=== PATIENT | female | born 1930 | race Two or more races ===

== ENCOUNTER 2016-09-10 04:01 | Inpatient (IN) | payer MEDICARE, OTHER ==
[2016-09-10] VITALS (10 sets, daily range): BP systolic 29–167; BP diastolic 44–88
[~2016-09-10] VITALS: Ht 160 cm; Wt 90.7 kg
[~2016-09-10 04:01] MED LIST: ASPIR 8181 MG ORAL; ATORVASTATIN CA20 MG ORAL; BYSTOLIC2.5 MG ORAL; CAPTOPRIL50 MG PO; DIOVAN HCT 1601 EACH ORAL; DIOVAN160 MG ORAL; FUROSEMIDE40 MG/5 ML ORAL; JANUVIA50 MG ORAL; NEXIUM40 MG ORAL; VASCEPA1 GM PO; VITAMIN D400 INTLU ORAL
[2016-09-10] MEDS ORDERED: RANEXA500 MG ORAL (04:07)
[2016-09-10] MEDS ORDERED: DIOVAN HCT 1601 EAC1 ORAL (04:07)
[2016-09-10] MEDS ORDERED: NEXIUM20 MG ORAL (04:07)
--- NOTE | 2016-09-10 04:07 | Emergency Room Report ---
History of Present Illness General Source: Patient Present Illness HPI Patient is an 85-year-old female who is brought in by ambulance after increased shortness of breath. Patient gradual onset of symptoms. Patient had been noted to have increased orthopnea. Patient recently discharged from [facility] after receiving IV fluids for a hernia patient had been taking diuretics previously. The patient denied any vomiting. She had not been having any fever. The patient prior history of COPD. Allergies: Coded Allergies: HYDROMORPHONE (Unverified Allergy, Unknown, 11/16/14) MORPHINE (Unverified Allergy, Unknown, 11/16/14) ONDANSETRON (Unverified Allergy, Unknown, 11/16/14) PHENYTOIN (Unverified Allergy, Unknown, 11/16/14) Patient History Past Medical History: see triage record, COPD Reviewed Nursing Documentation: PMH: Agreed, PSxH: Agreed Review of Systems All Other Systems: negative except mentioned in HPI Physical Exam Sp02 EP Interpretation: reviewed, normal General Appearance: normal inspection, alert, GCS 15, moderate distress, obese Head: atraumatic ENT: normal ENT inspection, hearing grossly normal, normal voice Neck: normal inspection, full range of motion, supple, no bony tend Respiratory: normal inspection, no retraction, respiratory distress, rales Cardiovascular #1: regular rate, rhythm, edema - 3+ Gastrointestinal: soft, no guarding, hernia Genitourinary: no CVA tenderness Musculoskeletal: normal inspection, back normal, normal range of motion Neurologic: normal inspection, alert, oriented x3, responsive, hand i tube bender III-XII nml as tested, speech normal Psychiatric: normal inspection, judgement/insight normal, mood/affect normal Skin: normal inspection, normal color, no rash Medical Decision Making Diagnostic Impression: Primary Impression: CHF exacerbation Additional Impressions: COPD (chronic obstructive pulmonary disease) Hernia ER Course Patient presented for shortness of breath.Differential included but was not limited to anemia, pneumonia, pneumothorax, myocardial infarction, pericardial effusion, congestive heart failure, acidosis. Because of complexity of patient' s case laboratory testing and imaging studies were ordered.The patient was noted to be markedly short of breath. The patient was started on BiPAP. Patient was given breathing treatment.The patient was noted to have improvement or difficulty breathing. Patient was discussed with Dr. Fernandez for inpatient management. Labs Test 09/10/16 04:25 09/10/16 05:20 White Blood Count 11.8 K/UL (4.8-10.8) Red Blood Count 4.39 M/UL (4.20-5.40) Hemoglobin 12.1 G/DL (12.0-16.0) Hematocrit 38.1 % (37.0-47.0) Mean Corpuscular Volume 87 FL (80-99) Mean Corpuscular Hemoglobin 27.6 PG (27.0-31.0) Mean Corpuscular Hemoglobin Concent 31.9 G/DL (32.0-36.0) Red Cell Distribution Width 16.4 % (11.6-14.8) Platelet Count 220 K/UL (150-450) Mean Platelet Volume 7.1 FL (6.5-10.1) Neutrophils (%) (Auto) 82.7 % (45.0-75.0) Lymphocytes (%) (Auto) 8.3 % (20.0-45.0) Monocytes (%) (Auto) 7.5 % (1.0-10.0) Eosinophils (%) (Auto) 0.9 % (0.0-3.0) Basophils (%) (Auto) 0.5 % (0.0-2.0) Sodium Level 139 mEQ/L (135-145) Potassium Level 4.4 mEQ/L (3.4-4.9) Chloride Level 92 mEQ/L (98-107) Carbon Dioxide Level 35 mEQ/L (20-30) Anion Gap 12 (5-15) Blood Urea Nitrogen 13 mg/dL (7-23) Creatinine 0.7 mg/dL (0.5-0.9) Estimat Glomerular Filtration Rate mL/min (>60) Glucose Level 169 mg/dL (74-106) Calcium Level 10.3 mg/dL (8.6-10.2) Total Bilirubin 1.7 mg/dL (0.0-1.2) Direct Bilirubin 0.3 mg/dL (0.1-0.3) Aspartate Amino Transf (AST/SGOT) 20 U/L (5-40) Alanine Aminotransferase (ALT/SGPT) 18 U/L (3-33) Alkaline Phosphatase 76 U/L (35-104) Total Creatine Kinase 47 U/L (26-140) Creatine Kinase MB 2.9 ng/mL (< 3.8) Creatine Kinase MB Relative Index 6.1 Troponin I < 0.30 ng/mL (<=0.30) Pro-B-Type Natriuretic Peptide 1247 pg/mL (0-450) Total Protein 9.1 g/dL (6.6-8.7) Albumin 4.5 g/dL (3.5-5.2) Globulin 4.6 g/dL Albumin/Globulin Ratio 0.9 (1.0-2.7) Urine Color Pale yellow Urine Appearance Clear Urine pH 5 (4.5-8.0) Urine Specific [place] 1.010 (1.005-1.035) Urine Protein Negative (NEGATIVE) Urine Glucose (UA) Negative (NEGATIVE) Urine Ketones Negative (NEGATIVE) Urine Occult Blood Negative (NEGATIVE) Urine Nitrite Negative (NEGATIVE) Urine Bilirubin Negative (NEGATIVE) Urine Urobilinogen Normal MG/DL (0.0-1.0) Urine Leukocyte Esterase Negative (NEGATIVE) EKG Diagnostic Results Rate: normal Rhythm: NSR ST Segments: no acute changes Status: unchanged Disposition: ADMITTED INPATIENT - `` Condition: Serious Se Archuleta Sep 10, 2016 04:07
[2016-09-10] MEDS ORDERED: Ipratropium 0.02% Inh Soln 2.5ml UD HHN ONE (04:15)
[2016-09-10] MEDS ORDERED: Albuterol ud Inhalation HHN ONE (04:15)
[2016-09-10] MEDS ORDERED: KLONOPIN0.5 MG ORAL (04:19)
[2016-09-10] MEDS ORDERED: POTASSIUM CHLOR8 ME3 PO (04:19)
[2016-09-10] MEDS ORDERED: CAPTOPRIL25 M1 PO (04:19)
[2016-09-10] MEDS ORDERED: VESICARE5 MG ORAL (04:19)
[2016-09-10] MEDS ORDERED: BENADRYL25 MG ORAL (04:21)
[2016-09-10 04:55] LABS: BASOPHILS % (AUTO) 0.5 % (0.0-2.0); EOSINOPHILS % (AUTO) 0.9 % (0.0-3.0); LYMPHOCYTES % (AUTO) 8.3 % (20.0-45.0); MEAN CORPUSCULAR HEMOGLOBIN 27.6 PG (27.0-31.0); MEAN CORPUSCULAR HGB CONC 31.9 G/DL (32.0-36.0); MEAN CORPUSCULAR VOLUME 87 FL (80-99); MEAN PLATELET VOLUME 7.1 FL (6.5-10.1); MONOCYTES % (AUTO) 7.5 % (1.0-10.0); NEUTROPHILS % (AUTO) 82.7 % (45.0-75.0); PLATELET COUNT 220 K/UL (150-450); RED BLOOD COUNT 4.39 M/UL (4.20-5.40); RED CELL DISTRIBUTION WIDTH 16.4 % (11.6-14.8); WHITE BLOOD COUNT 11.8 K/UL (4.8-10.8)
[2016-09-10 05:16] LABS: ALANINE AMINOTRANSFERASE 18 U/L (3-33); ALBUMIN/GLOBULIN RATIO 0.9 (1.0-2.7); ANION GAP 12 (5-15); ASPARTATE AMINO TRANSFERASE 20 U/L (5-40); CALCIUM 10.3 mg/dL (8.6-10.2); CARBON DIOXIDE 35 mEQ/L (20-30); CHLORIDE 92 mEQ/L (98-107); CREATININE 0.7 mg/dL (0.5-0.9); HEMOLYSIS 0; POTASSIUM 4.4 mEQ/L (3.4-4.9); SODIUM 139 mEQ/L (135-145); TOTAL PROTEIN 9.1 g/dL (6.6-8.7)
[2016-09-10 05:17] LABS: TROPONIN I < 0.30 ng/mL (<=0.30)
[2016-09-10 05:27] LABS: CKMB 2.9 ng/mL (< 3.8)
[2016-09-10 05:31] LABS: APPEARANCE,URINE CLEAR; KETONES,URINE NEGATIVE (NEGATIVE); LEUKOCYTE ESTERASE ,URINE NEGATIVE (NEGATIVE); NITRITE,URINE NEGATIVE (NEGATIVE); PH,URINE 5 (4.5-8.0); PROTEIN,URINE NEGATIVE (NEGATIVE); UROBILINOGEN,URINE NORMAL MG/DL (0.0-1.0)
[2016-09-10 05:43] LABS: BILIRUBIN,DIRECT 0.3 mg/dL (0.1-0.3)
[2016-09-10] MEDS ORDERED: NovoLOG Insulin Flexpen SUBQ SCH (07:30)
--- NOTE | 2016-09-10 08:55 | Consultation ---
Consult Note Consult Note ID CONSULT: Kailee# [id number] Assessment/Plan ASSESSMENT: 85 y/o female with: // Acute on chronic diastolic CHF exacerbation - trop(-) x1, BNP elevated - TTE 10/2014: EF 55-60%, grade I diastolic dysfunction, mild // Leukocytosis - mild, afebrile, m/l stress response - UA benign, no localizing s/sx infection // Acute respiratory failure / BiPAP 2/2 CHF, effusion // Pleural effusion // DM2 // Large ventral hernia // Morbid obesity // No ABX allergies // Full Code PLAN: - low suspicion infectious process - monitor pt off of ABX - consider thoracentesis - monitor CBC, temperatures, gandhi-culture if acute change - monitor BMP - diuresis - BiPAP prn d/w family at bedside Thanks! Will follow KALEIGH SAUCEDA Sep 10, 2016 08:55
[2016-09-10] MEDS ORDERED: Solifenacin 10mg tab ORAL ONE (09:00)
[2016-09-10] MEDS ORDERED: Bystolic 2.5mg Tab ORAL ONE (09:00)
[2016-09-10] MEDS ORDERED: Ranolazine 500mg tab ORAL ONE (09:00)
[2016-09-10] MEDS ORDERED: Furosemide 40mg tab ORAL ONE (09:00)
[2016-09-10] MEDS ORDERED: Captopril 25mg tab ORAL ONE (09:00)
--- NOTE | 2016-09-10 09:51 | History & Physical ---
History and Physical History & Physicial Dictation completed. [id number] Reggie Fernandez MD Sep 10, 2016 09:51
[2016-09-10 11:16] LABS: HEMOGLOBIN A1C 5.9 % (< 6.0)
[2016-09-10 11:25] LABS: THYROID STIMULATING HORMONE 1.59 uIU/mL (0.300-4.500)
[2016-09-10] MEDS: Heparin 5000 units/ml inj SUBQ SCH ×3 (11:37→21:43)
[2016-09-10] MEDS: Aspirin EC 81mg tab ORAL SCH (11:37)
--- NOTE | 2016-09-10 11:38 | History and Physical Report ---
DATE OF ADMISSION: 09/10/2016 SOURCE OF INFORMATION: The patient and EMR. HISTORY OF PRESENT ILLNESS: The patient is an 85-year-old female with prior history of COPD and CHF, who presented with worsening development shortness of breath. The patient has been recently discharged from [facility] where she had received the IV fluids. PAST MEDICAL HISTORY: Diabetes mellitus, COPD, incarceration, partial small bowel obstruction, anemia, and CHF. MEDICATIONS: Home medications including aspirin, Lipitor, captopril, clonazepam, Lasix, heparin, Bystolic, potassium, Januvia, and VESIcare. ALLERGIES: Dilaudid, morphine, Zofran, and phenytoin. REVIEW OF SYSTEMS: Today, review of systems as follows: Negative for chest pain. Negative for abnormal bleeding. Negative for diarrhea and constipation. Negative for fever or chills. PHYSICAL EXAMINATION: VITAL SIGNS: Blood pressure 160/80, temperature 97.5 degrees, and pulse oximetry 99% on two liters of oxygen. HEENT: Head and neck, atraumatic and normocephalic. CHEST: Diffuse bronchial breathing sounds. Decreased breathing sounds. HEART: S1 and S2. Regular rate and rhythm. ABDOMEN: Soft. No organomegaly.multiple abdominal wall hernias in multiple sizes, not tender MUSCULOSKELETAL: Decreased muscle mass, however, there is no gross focal motor deficit. NEUROLOGY: The patient is awake, alert and oriented x2. LABORATORY AND DIAGNOSTIC DATA: Labs dated 09/10/2016 show WBC 11.8, hemoglobin 12.1, and platelets 220,000. Sodium 139, potassium 4.4, BUN 13, and creatinine 0.7. ALT and AST normal. BNP 1240. Urine analysis unremarkable. IMAGING: Official report for the chest x-ray is pending. COURSE IN THE ER: The patient was initially admitted with the abnormal blood pressure. Initial chest x-ray showed diffusion. The patient's symptoms was managed by the BiPAP. ASSESSMENT AND PLAN: 1. Acute hypoxemic respiratory failure. 2. Congestive heart failure exacerbation - workup - echocardiogram results pending. 3. Diabetes type 2, status unknown. 4. Chronic obstructive pulmonary disease. 5. Hyperlipidemia. 6. Cachexia. 7. Abdominal wall hernia-Multiple 7. Gastrointestinal and deep vein thrombosis prophylaxes. PLAN OF CARE: We will resume the home medication. Cardiology, Dr. Taylor, Pulmonary, Dr. Mauricio, Infectious Disease, Dr. Tej Culp and Surgery Dr Thapa have been consulted. Continue with the current management. Reggie Fernandez M.D. DR: Muriel JOB#: [id number] CC: [email or web address]
--- NOTE | 2016-09-10 11:41 | Diagnostic Imaging Report ---
Indication: Dyspnea Comparison: 07/15/2007 A single view chest radiograph was obtained. Findings: Interstitial edema noted. The heart is enlarged. Bones are osteopenic. Impression: Congestive heart failure
--- NOTE | 2016-09-10 11:48 | Consultation ---
DATE OF CONSULTATION: INFECTIOUS DISEASE CONSULTATION: REFERRING PHYSICIAN: Reggie Fernandez M.D. REASON FOR CONSULTATION: Leukocytosis. HISTORY OF PRESENT ILLNESS: This 85-year-old diabetic obese female with history of diastolic CHF admitted on 09/10/2016 with shortness of breath. The patient denies cough, fevers, or chills. She was recently admitted to [facility] and was off of her diuretic. Chest x-ray shows pleural effusion and pulmonary edema. No fevers and associated mild leukocytosis of 11.8. Urinalysis is benign. Troponin negative x1. BNP is elevated at 1247. No cultures have been sent. She has not received any antibiotics . ID now consulted to assist in management. PAST MEDICAL HISTORY: 1. Morbid obesity. 2. Diabetes. 3. Hypertension. 4. Hyperlipidemia. 5. Diastolic CHF. 6. Large ventral hernia. PAST SURGICAL HISTORY: Hysterectomy. MEDICATIONS: 1. Januvia. 2. Lipitor. 3. Aspirin. 4. Captopril. 5. Lasix. 6. 7. Ranexa. 8. VESIcare. 9. Subcutaneous heparin. 10. Protonix. ALLERGIES: 1. Hydromorphone. 2. Morphine. 3. Zofran. 4. Dilantin. SOCIAL HISTORY: The patient lives locally. Her family involved in her care. No active tobacco, alcohol, or illicit drug abuse. FAMILY HISTORY: Mother had diabetes and cancer. REVIEW OF SYSTEMS: As per history of present illness. Ten systems reviewed. All pertinent positives and negatives noted. PHYSICAL EXAMINATION: VITAL SIGNS: Maximum temperature 97.5 degrees, blood pressure 120/63, heart rate in 70s, respiratory rate 20, and saturating 100% on 40% FiO2 BiPAP. GENERAL: Mild respiratory distress. CARDIOVASCULAR: Regular rate and rhythm. No murmurs. PULMONARY: Coarse breath sounds bilaterally. ABDOMEN: Bowel sounds present. Soft, nondistended, and nontender. Large ventral hernia. EXTREMITIES: Edema. LABORATORY DATA: White blood cell count 11.8, hemoglobin 12.1, and platelets 220,000. Sodium 139, potassium 4.4, chloride 92, bicarb 35, BUN 13, and creatinine 0.7. Liver function tests within normal limits. Troponin negative x1. BNP 1247. Urinalysis negative. MICROBIOLOGY: None. IMAGING: On 09/10/2016, chest x-ray pending. Reported pleural effusion and edema. ASSESSMENT: 1. Acute on chronic diastolic congestive heart failure exacerbation. Troponin negative x1 and BNP is elevated. Echocardiogram in 2014 showed ejection fraction of 55% to 60% with diastolic dysfunction, mild aortic stenosis. 2. Leukocytosis, mild and afebrile most likely stress response. Urinalysis is benign. No localizing signs or symptoms of infection. 3. Acute respiratory failure/BiPAP most likely secondary to congestive heart failure and pleural effusion. 4. Pleural effusion. 5. Diabetes type 2. 6. Morbid obesity. 7. Large ventral hernia in the past. 8. No antibiotic allergies. 9. Full Code. PLAN: 1. Low suspicion for infectious process. Monitor the patient off of antibiotics. 2. Consider thoracentesis. 3. Monitor CBC, temperatures, and panculture if acute change. 4. Monitor BMP. 5. Diuresis. 6. BiPAP as needed. 7. Discussed with family at bedside. Thank you. We will follow. Tej Culp M.D. DR: Nichol JOB#: [id number] CC: Reggie Fernandez M.D.; Fax#: [phone] Chang M.D; Fax#: [phone]
[2016-09-10] MEDS: Bystolic 2.5mg Tab ORAL SCH (12:30)
[2016-09-10] MEDS: Captopril 25mg tab ORAL SCH (12:31)
[2016-09-10] MEDS: Furosemide 40mg tab ORAL SCH (13:45)
--- NOTE | 2016-09-10 20:45 | Cardiology Progress Note ---
Assessment/Plan Assessment/Plan The patient is seen and examined, full consult note will be dictated. Objective Last 24 Hour Vital Signs Date Time Temp Pulse Resp B/P Pulse Ox O2 Delivery O2 Flow Rate FiO2 09/10/16 20:36 97.5 79 17 138/65 94 Nasal Cannula 4.0 09/10/16 20:00 4.0 09/10/16 20:00 72 09/10/16 17:18 68 29 117/57 97 Nasal Cannula 2.0 09/10/16 17:17 Nasal Cannula 2.0 28 09/10/16 17:17 97 Nasal Cannula 2.0 28 09/10/16 17:17 97.5 68 29 119/54 98 Nasal Cannula 4.0 40 09/10/16 15:58 68 29 119/54 98 Nasal Cannula 4.0 09/10/16 14:06 70 29 98/48 98 Nasal Cannula 4.0 09/10/16 13:26 63 29 95/48 97 Venturi Mask 40 71 09/10/16 12:46 65 29 97/44 98 40 71 09/10/16 12:31 123/53 09/10/16 11:00 71 29 123/73 98 40 09/10/16 10:43 75 29 98 Facial 40 09/10/16 08:53 75 29 100 Facial 40 09/10/16 08:00 71 20 29/58 100 Bi-pap 40 09/10/16 07:28 74 28 100 Facial 40 09/10/16 06:08 97.5 75 28 128/63 98 Bi-pap 40 09/10/16 05:10 75 20 99 Facial 40 09/10/16 05:05 40 09/10/16 05:05 97.5 81 28 167/88 100 Bi-pap 40 09/10/16 05:00 81 28 Bi-pap 40 09/10/16 04:27 82 23 100 Bi-pap 40 09/10/16 04:25 82 23 100 Facial 40 09/10/16 03:59 97.5 91 42 167/88 96 Bi-pap Intake and Output 09/09/16 09/10/16 19:00 07:00 Output Total 150 ml Balance -150 ml Output Urine Total 150 ml Laboratory Tests Test 09/10/16 04:25 09/10/16 05:20 White Blood Count 11.8 K/UL (4.8-10.8) H Red Blood Count 4.39 M/UL (4.20-5.40) Hemoglobin 12.1 G/DL (12.0-16.0) Hematocrit 38.1 % (37.0-47.0) Mean Corpuscular Volume 87 FL (80-99) Mean Corpuscular Hemoglobin 27.6 PG (27.0-31.0) Mean Corpuscular Hemoglobin Concent 31.9 G/DL (32.0-36.0) L Red Cell Distribution Width 16.4 % (11.6-14.8) H Platelet Count 220 K/UL (150-450) Mean Platelet Volume 7.1 FL (6.5-10.1) Neutrophils (%) (Auto) 82.7 % (45.0-75.0) H Lymphocytes (%) (Auto) 8.3 % (20.0-45.0) L Monocytes (%) (Auto) 7.5 % (1.0-10.0) Eosinophils (%) (Auto) 0.9 % (0.0-3.0) Basophils (%) (Auto) 0.5 % (0.0-2.0) Sodium Level 139 mEQ/L (135-145) Potassium Level 4.4 mEQ/L (3.4-4.9) Chloride Level 92 mEQ/L (98-107) L Carbon Dioxide Level 35 mEQ/L (20-30) H Anion Gap 12 (5-15) Blood Urea Nitrogen 13 mg/dL (7-23) Creatinine 0.7 mg/dL (0.5-0.9) Estimat Glomerular Filtration Rate mL/min (>60) Glucose Level 169 mg/dL (74-106) H Hemoglobin A1c 5.9 % (< 6.0) Calcium Level 10.3 mg/dL (8.6-10.2) H Total Bilirubin 1.7 mg/dL (0.0-1.2) H Direct Bilirubin 0.3 mg/dL (0.1-0.3) Aspartate Amino Transf (AST/SGOT) 20 U/L (5-40) Alanine Aminotransferase (ALT/SGPT) 18 U/L (3-33) Alkaline Phosphatase 76 U/L (35-104) Total Creatine Kinase 47 U/L (26-140) Creatine Kinase MB 2.9 ng/mL (< 3.8) Creatine Kinase MB Relative Index 6.1 Troponin I < 0.30 ng/mL (<=0.30) Pro-B-Type Natriuretic Peptide 1247 pg/mL (0-450) H Total Protein 9.1 g/dL (6.6-8.7) H Albumin 4.5 g/dL (3.5-5.2) Globulin 4.6 g/dL Albumin/Globulin Ratio 0.9 (1.0-2.7) L Thyroid Stimulating Hormone (TSH) 1.590 uIU/mL (0.300-4.500) Urine Color Pale yellow Urine Appearance Clear Urine pH 5 (4.5-8.0) Urine Specific [place] 1.010 (1.005-1.035) Urine Protein Negative (NEGATIVE) Urine Glucose (UA) Negative (NEGATIVE) Urine Ketones Negative (NEGATIVE) Urine Occult Blood Negative (NEGATIVE) Urine Nitrite Negative (NEGATIVE) Urine Bilirubin Negative (NEGATIVE) Urine Urobilinogen Normal MG/DL (0.0-1.0) Urine Leukocyte Esterase Negative (NEGATIVE) DEMARCUS BOYER Sep 10, 2016 20:45
[2016-09-10] MEDS ORDERED: clonazePAM 0.5mg tab ORAL PRN (21:00)
--- NOTE | 2016-09-10 21:37 | General Surgery Progress Note ---
General Surgery-Progress Note Subjective Additional Comments ventral hernia Objective Last 24 Hour Vital Signs Date Time Temp Pulse Resp B/P Pulse Ox O2 Delivery O2 Flow Rate FiO2 09/10/16 20:36 97.5 79 17 138/65 94 Nasal Cannula 4.0 09/10/16 20:00 4.0 09/10/16 20:00 72 09/10/16 17:18 68 29 117/57 97 Nasal Cannula 2.0 09/10/16 17:17 Nasal Cannula 2.0 28 09/10/16 17:17 97 Nasal Cannula 2.0 28 09/10/16 17:17 97.5 68 29 119/54 98 Nasal Cannula 4.0 40 09/10/16 15:58 68 29 119/54 98 Nasal Cannula 4.0 09/10/16 14:06 70 29 98/48 98 Nasal Cannula 4.0 09/10/16 13:26 63 29 95/48 97 Venturi Mask 40 71 09/10/16 12:46 65 29 97/44 98 40 71 09/10/16 12:31 123/53 09/10/16 11:00 71 29 123/73 98 40 09/10/16 10:43 75 29 98 Facial 40 09/10/16 08:53 75 29 100 Facial 40 09/10/16 08:00 71 20 29/58 100 Bi-pap 40 09/10/16 07:28 74 28 100 Facial 40 09/10/16 06:08 97.5 75 28 128/63 98 Bi-pap 40 09/10/16 05:10 75 20 99 Facial 40 09/10/16 05:05 40 09/10/16 05:05 97.5 81 28 167/88 100 Bi-pap 40 09/10/16 05:00 81 28 Bi-pap 40 09/10/16 04:27 82 23 100 Bi-pap 40 09/10/16 04:25 82 23 100 Facial 40 09/10/16 03:59 97.5 91 42 167/88 96 Bi-pap I&O Intake and Output 09/09/16 09/10/16 19:00 07:00 Output Total 150 ml Balance -150 ml Output Urine Total 150 ml Respiratory: decreased breath sounds Abdomen: soft, non-tender, present bowel sounds, other - large reducible ventral hernia LLQ Extremities: edema Laboratory Tests Test 09/10/16 04:25 09/10/16 05:20 White Blood Count 11.8 K/UL (4.8-10.8) H Red Blood Count 4.39 M/UL (4.20-5.40) Hemoglobin 12.1 G/DL (12.0-16.0) Hematocrit 38.1 % (37.0-47.0) Mean Corpuscular Volume 87 FL (80-99) Mean Corpuscular Hemoglobin 27.6 PG (27.0-31.0) Mean Corpuscular Hemoglobin Concent 31.9 G/DL (32.0-36.0) L Red Cell Distribution Width 16.4 % (11.6-14.8) H Platelet Count 220 K/UL (150-450) Mean Platelet Volume 7.1 FL (6.5-10.1) Neutrophils (%) (Auto) 82.7 % (45.0-75.0) H Lymphocytes (%) (Auto) 8.3 % (20.0-45.0) L Monocytes (%) (Auto) 7.5 % (1.0-10.0) Eosinophils (%) (Auto) 0.9 % (0.0-3.0) Basophils (%) (Auto) 0.5 % (0.0-2.0) Sodium Level 139 mEQ/L (135-145) Potassium Level 4.4 mEQ/L (3.4-4.9) Chloride Level 92 mEQ/L (98-107) L Carbon Dioxide Level 35 mEQ/L (20-30) H Anion Gap 12 (5-15) Blood Urea Nitrogen 13 mg/dL (7-23) Creatinine 0.7 mg/dL (0.5-0.9) Estimat Glomerular Filtration Rate mL/min (>60) Glucose Level 169 mg/dL (74-106) H Hemoglobin A1c 5.9 % (< 6.0) Calcium Level 10.3 mg/dL (8.6-10.2) H Total Bilirubin 1.7 mg/dL (0.0-1.2) H Direct Bilirubin 0.3 mg/dL (0.1-0.3) Aspartate Amino Transf (AST/SGOT) 20 U/L (5-40) Alanine Aminotransferase (ALT/SGPT) 18 U/L (3-33) Alkaline Phosphatase 76 U/L (35-104) Total Creatine Kinase 47 U/L (26-140) Creatine Kinase MB 2.9 ng/mL (< 3.8) Creatine Kinase MB Relative Index 6.1 Troponin I < 0.30 ng/mL (<=0.30) Pro-B-Type Natriuretic Peptide 1247 pg/mL (0-450) H Total Protein 9.1 g/dL (6.6-8.7) H Albumin 4.5 g/dL (3.5-5.2) Globulin 4.6 g/dL Albumin/Globulin Ratio 0.9 (1.0-2.7) L Thyroid Stimulating Hormone (TSH) 1.590 uIU/mL (0.300-4.500) Urine Color Pale yellow Urine Appearance Clear Urine pH 5 (4.5-8.0) Urine Specific [place] 1.010 (1.005-1.035) Urine Protein Negative (NEGATIVE) Urine Glucose (UA) Negative (NEGATIVE) Urine Ketones Negative (NEGATIVE) Urine Occult Blood Negative (NEGATIVE) Urine Nitrite Negative (NEGATIVE) Urine Bilirubin Negative (NEGATIVE) Urine Urobilinogen Normal MG/DL (0.0-1.0) Urine Leukocyte Esterase Negative (NEGATIVE) Assessment Additional Comments Ventral Hernia Plan Additional Comments At present time her condition does not allow any surgery KAYA PANCHAL Sep 10, 2016 21:37
[2016-09-10] MEDS: Atorvastatin 20mg tab ORAL SCH (21:39)
[2016-09-10] MEDS: Ranolazine 500mg tab ORAL SCH (21:39)
[2016-09-10] MEDS: NovoLOG Insulin Flexpen SUBQ SCH (21:42)
--- NOTE | 2016-09-10 22:48 | Pre-op HX & Phy Repo 2 SIG ---
DATE OF ADMISSION: 09/10/2016 REQUESTING PHYSICIAN: Reggie Fernandez M.D. REASON FOR CONSULTATION: Ventral hernia. HISTORY OF PRESENT ILLNESS: This is an 85-year-old, [place] female, who presented to emergency room for shortness of breath. She has a long history of CHF and COPD, but apparently recently she has received some intravenous fluids for nausea and vomiting, which has caused pulmonary edema and increase in her dyspnea, so she presented to the emergency room. During the evaluation, it was noticed that the patient had a hernia and a consultation has been requested. The patient cannot talk. Her daughter, who is at bedside and she was the one who gave the information. She stated that the patient has undergone a hysterectomy about 15 years ago and a few years later she has developed a lump at the left lower quadrant of her abdomen, which has gradually enlarged and increased. She stated that okay generally it does causes nausea and vomiting, but it is not very frequent. At this time, apparently she does not have any complaint about the hernia. PAST MEDICAL HISTORY: The daughter stated that she is allergic to morphine, Dilaudid and Zoloft. She has a history of COPD, diabetes, congestive heart failure and this apparently she has a history of cancer of the bladder, which the daughter claims that the urologist "tries it every now and then". PAST SURGICAL HISTORY: Include hysterectomy and left breast biopsy. MEDICATIONS: She is on multiple medications. Please see the medicine reconciliation form. SOCIAL HISTORY: The patient is an 85-year-old female, who is and mother of two children. She denies smoking and drinking. REVIEW OF SYSTEMS: Unobtainable as the patient is obtunded. PHYSICAL EXAMINATION: GENERAL APPEARANCE: The patient appeared to be a well-developed, well-nourished, morbidly obese, 85-year-old female, lying in bed, obtunded. HEENT: Head is normocephalic and atraumatic. Eyes, pupils are equal, round, and reactive to light. Mouth is clear. NECK: There is no palpable thyromegaly or adenopathy. CHEST: Clear. She has rhonchi on both sides. HEART: Tachycardic, but there is no gallop or murmur. ABDOMEN: Very obese and pendulous, but soft and nontender. She has a scar of the transverse suprapubic incision. She has a partially reducible hernia at the left lower quadrant of the abdomen. This hernia is at the size of a coconut. EXTREMITIES: She has a slight edema of both legs. ASSESSMENT: Ventral hernia. RECOMMENDATION: The patient requires a ventral herniorrhaphy, but at the present time with her condition that any surgery is contraindicated and she will not be able to tolerate the general anesthesia and after this acute episode resolves, if the roof truss detailer clears her for surgery I will be more than happy to perform the operation. Monse Thapa M.D. DR: SHONDA JOB#: [id number] CC:
[2016-09-11] VITALS: BP 105/51
[2016-09-11] MEDS: DuoNeb 0.5-3(2.5)mg/3ml neb HHN PRN ×2 (01:05→06:22)
[2016-09-11 04:00] VITALS: BP 134/70
[2016-09-11 05:46] LABS: BASOPHILS % (AUTO) 0.3 % (0.0-2.0); EOSINOPHILS % (AUTO) 1.6 % (0.0-3.0); LYMPHOCYTES % (AUTO) 10.1 % (20.0-45.0); MEAN CORPUSCULAR HEMOGLOBIN 27.9 PG (27.0-31.0); MEAN CORPUSCULAR HGB CONC 32.2 G/DL (32.0-36.0); MEAN CORPUSCULAR VOLUME 87 FL (80-99); MEAN PLATELET VOLUME 6.9 FL (6.5-10.1); MONOCYTES % (AUTO) 9.7 % (1.0-10.0); NEUTROPHILS % (AUTO) 78.2 % (45.0-75.0); PLATELET COUNT 190 K/UL (150-450); RED BLOOD COUNT 3.36 M/UL (4.20-5.40); RED CELL DISTRIBUTION WIDTH 16.2 % (11.6-14.8)
[2016-09-11 06:12] LABS: ALANINE AMINOTRANSFERASE 12 U/L (3-33); ALBUMIN/GLOBULIN RATIO 0.8 (1.0-2.7); ANION GAP 11 (5-15); ASPARTATE AMINO TRANSFERASE 14 U/L (5-40); CALCIUM 9.1 mg/dL (8.6-10.2); CARBON DIOXIDE 35 mEQ/L (20-30); CHLORIDE 97 mEQ/L (98-107); CREATININE 0.8 mg/dL (0.5-0.9); HEMOLYSIS 0; SODIUM 143 mEQ/L (135-145); TOTAL PROTEIN 6.9 g/dL (6.6-8.7)
[2016-09-11] MEDS: sitaGLIPtin 50mg tab ORAL SCH (06:24)
[2016-09-11] MEDS: NovoLOG Insulin Flexpen SUBQ SCH ×4 (06:25→20:01)
[2016-09-11 06:55] LABS: BILIRUBIN,DIRECT 0.2 mg/dL (0.1-0.3)
[2016-09-11 08:00] VITALS: BP 119/64
--- NOTE | 2016-09-11 08:37 | Infectious Diseases Prog Note ---
Assessment/Plan Assessment/Plan ASSESSMENT: 85 y/o female with: // Acute on chronic diastolic CHF exacerbation - trop(-) x1, BNP elevated - CXR 09/10: Interstitial edema noted. The heart is enlarged - TTE 10/2014: EF 55-60%, grade I diastolic dysfunction, mild // Leukocytosis, mild - resolved, afebrile, m/l stress response - UA benign, no localizing s/sx infection // Acute respiratory failure / BiPAP 2/2 CHF, effusion // DM2 // Large ventral hernia // Morbid obesity // No ABX allergies // Full Code PLAN: - low suspicion infectious process - monitor pt off of ABX - monitor CBC, temperatures, gandhi-culture if acute change - monitor BMP - diuresis - BiPAP prn Subjective Allergies: Coded Allergies: HYDROMORPHONE (Unverified Allergy, Unknown, 11/16/14) MORPHINE (Unverified Allergy, Unknown, 11/16/14) ONDANSETRON (Unverified Allergy, Unknown, 11/16/14) PHENYTOIN (Unverified Allergy, Unknown, 11/16/14) Subjective remains afebrile. now on NC leukocytosis resolved Objective Vital Signs Last 24 Hour Vital Signs Date Time Temp Pulse Resp B/P Pulse Ox O2 Delivery O2 Flow Rate FiO2 09/11/16 08:00 98.4 81 18 119/64 91 Nasal Cannula 3.0 09/11/16 06:41 Nasal Cannula 3.0 09/11/16 06:40 97 Nasal Cannula 3.0 09/11/16 06:33 71 22 97 Nasal Cannula 3.0 09/11/16 06:20 72 20 91 Nasal Cannula 4.0 09/11/16 04:00 75 09/11/16 04:00 98.2 72 24 134/70 100 Nasal Cannula 4.0 09/11/16 04:00 4.0 09/11/16 01:17 72 20 98 Nasal Cannula 4.0 36 09/11/16 01:06 75 20 92 Nasal Cannula 4.0 36 09/11/16 01:06 75 20 Nasal Cannula 4.0 36 09/11/16 00:00 98.6 75 21 105/51 94 Nasal Cannula 4.0 09/11/16 00:00 4.0 09/10/16 20:36 97.5 79 17 138/65 94 Nasal Cannula 4.0 09/10/16 20:00 4.0 09/10/16 20:00 72 09/10/16 17:18 68 29 117/57 97 Nasal Cannula 2.0 09/10/16 17:17 Nasal Cannula 2.0 28 09/10/16 17:17 97 Nasal Cannula 2.0 28 09/10/16 17:17 97.5 68 29 119/54 98 Nasal Cannula 4.0 40 09/10/16 15:58 68 29 119/54 98 Nasal Cannula 4.0 09/10/16 14:06 70 29 98/48 98 Nasal Cannula 4.0 09/10/16 13:26 63 29 95/48 97 Venturi Mask 40 71 09/10/16 12:46 65 29 97/44 98 40 71 09/10/16 12:31 123/53 09/10/16 11:00 71 29 123/73 98 40 09/10/16 10:43 75 29 98 Facial 40 09/10/16 08:53 75 29 100 Facial 40 Height (Feet): 5 Height (Inches): 3.00 Weight (Pounds): 200 General Appearance: no acute distress Respiratory/Chest: no respiratory distress Cardiovascular: normal rate, regular rhythm Abdomen: normal bowel sounds, soft, non tender, non distended, hernia Laboratory Tests Test 09/11/16 03:35 White Blood Count 9.0 K/UL (4.8-10.8) Red Blood Count 3.36 M/UL (4.20-5.40) L Hemoglobin 9.4 G/DL (12.0-16.0) L Hematocrit 29.2 % (37.0-47.0) L Mean Corpuscular Volume 87 FL (80-99) Mean Corpuscular Hemoglobin 27.9 PG (27.0-31.0) Mean Corpuscular Hemoglobin Concent 32.2 G/DL (32.0-36.0) Red Cell Distribution Width 16.2 % (11.6-14.8) H Platelet Count 190 K/UL (150-450) Mean Platelet Volume 6.9 FL (6.5-10.1) Neutrophils (%) (Auto) 78.2 % (45.0-75.0) H Lymphocytes (%) (Auto) 10.1 % (20.0-45.0) L Monocytes (%) (Auto) 9.7 % (1.0-10.0) Eosinophils (%) (Auto) 1.6 % (0.0-3.0) Basophils (%) (Auto) 0.3 % (0.0-2.0) Sodium Level 143 mEQ/L (135-145) Potassium Level 4.0 mEQ/L (3.4-4.9) Chloride Level 97 mEQ/L (98-107) L Carbon Dioxide Level 35 mEQ/L (20-30) H Anion Gap 11 (5-15) Blood Urea Nitrogen 16 mg/dL (7-23) Creatinine 0.8 mg/dL (0.5-0.9) Estimat Glomerular Filtration Rate mL/min (>60) Glucose Level 114 mg/dL (74-106) H Calcium Level 9.1 mg/dL (8.6-10.2) Total Bilirubin 1.4 mg/dL (0.0-1.2) H Direct Bilirubin 0.2 mg/dL (0.1-0.3) Aspartate Amino Transf (AST/SGOT) 14 U/L (5-40) Alanine Aminotransferase (ALT/SGPT) 12 U/L (3-33) Alkaline Phosphatase 80 U/L (35-104) Pro-B-Type Natriuretic Peptide 965 pg/mL (0-450) H Total Protein 6.9 g/dL (6.6-8.7) Albumin 3.1 g/dL (3.5-5.2) L Globulin 3.8 g/dL Albumin/Globulin Ratio 0.8 (1.0-2.7) L Current Medications Medications (Trade) Dose Ordered Sig/Volodymyr Route PRN Reason Start Time Stop Time Status Last Admin Dose Admin Albuterol/ Ipratropium (DuoNeb 0.5-3(2.5)mg/3ml) 3 ml EVERY 4 HOURS PRN HHN Shortness of Breath 09/10/16 19:00 09/15/16 18:59 09/11/16 06:22 Aspirin (Ecotrin) 81 mg DAILY ORAL 09/10/16 09:00 10/10/16 08:59 09/10/16 11:37 Atorvastatin Calcium (Lipitor) 20 mg BEDTIME ORAL 09/10/16 21:00 10/10/16 20:59 09/10/16 21:39 Captopril (Capoten) 25 mg DAILY ORAL 09/10/16 13:00 10/10/16 12:59 09/10/16 12:31 Clonazepam (KlonoPIN) 0.5 mg BEDTIME PRN ORAL Restlessness 09/10/16 21:00 09/17/16 20:59 09/10/16 21:39 Dextrose (Dextrose 50%) STAT PRN IV Hypoglycemia 09/10/16 07:30 10/10/16 07:29 Furosemide (Lasix) 40 mg DAILY ORAL 09/10/16 13:30 10/10/16 13:29 09/10/16 13:45 Heparin Sodium (Porcine) (Heparin 5000 units/ml) 5,000 units BID SUBQ 09/10/16 09:00 10/10/16 08:59 09/10/16 21:43 Insulin Aspart (NovoLOG) BEFORE MEALS AND HS SUBQ 09/10/16 21:30 10/10/16 21:29 09/10/16 21:42 Nebivolol (Bystolic) 5 mg DAILY ORAL 09/10/16 13:00 10/10/16 12:59 09/10/16 12:30 Pantoprazole (Protonix) 40 mg DAILY ORAL 09/10/16 12:30 10/10/16 12:29 09/10/16 11:37 Potassium Chloride (K-Dur) 10 meq TID ORAL 09/10/16 13:00 10/10/16 12:59 09/10/16 21:38 Ranolazine (Ranexa ER 500mg) 500 mg Q12HR ORAL 09/10/16 21:00 10/10/16 20:59 09/10/16 21:39 Sitagliptin Phosphate (Januvia) 50 mg ACBREAKFAST ORAL 09/11/16 06:30 10/11/16 06:29 09/11/16 06:24 Solifenacin (Vesicare) 5 mg DAILY ORAL 09/11/16 09:00 10/11/16 08:59 KALEIGH SAUCEDA 24, 2017 08:37
[2016-09-11] MEDS: Solifenacin 10mg tab ORAL SCH (09:00)
[2016-09-11] MEDS: Captopril 25mg tab ORAL SCH (09:00)
[2016-09-11] MEDS: Bystolic 2.5mg Tab ORAL SCH (09:26)
[2016-09-11] MEDS: Ranolazine 500mg tab ORAL SCH ×2 (09:26→20:01)
[2016-09-11] MEDS: Furosemide 40mg tab ORAL SCH (09:27)
[2016-09-11] MEDS: Aspirin EC 81mg tab ORAL SCH (09:27)
--- NOTE | 2016-09-11 09:48 | General Progress Note ---
Assessment/Plan Status: stable Assessment/Plan 1. Acute hypoxemic respiratory failure. 2. Congestive heart failure exacerbation - workup - echocardiogram results pending. 3. Diabetes type 2, status unknown. 4. Chronic obstructive pulmonary disease. 5. Hyperlipidemia. 6. Cachexia. 7. Abdominal wall hernia-Multiple 7. Gastrointestinal and deep vein thrombosis prophylaxes. Plan: current managment Subjective ROS Limited/Unobtainable: No Constitutional: Reports: malaise HEENT: Reports: no symptoms Respiratory: Reports: cough, orthopnea, shortness of breath Allergies: Coded Allergies: HYDROMORPHONE (Unverified Allergy, Unknown, 11/16/14) MORPHINE (Unverified Allergy, Unknown, 11/16/14) ONDANSETRON (Unverified Allergy, Unknown, 11/16/14) PHENYTOIN (Unverified Allergy, Unknown, 11/16/14) Objective Last 24 Hour Vital Signs Date Time Temp Pulse Resp B/P Pulse Ox O2 Delivery O2 Flow Rate FiO2 09/11/16 09:00 119/64 09/11/16 08:00 98.4 81 18 119/64 91 Nasal Cannula 3.0 09/11/16 06:41 Nasal Cannula 3.0 09/11/16 06:40 97 Nasal Cannula 3.0 09/11/16 06:33 71 22 97 Nasal Cannula 3.0 09/11/16 06:20 72 20 91 Nasal Cannula 4.0 09/11/16 04:00 75 09/11/16 04:00 98.2 72 24 134/70 100 Nasal Cannula 4.0 09/11/16 04:00 4.0 09/11/16 01:17 72 20 98 Nasal Cannula 4.0 36 09/11/16 01:06 75 20 92 Nasal Cannula 4.0 36 09/11/16 01:06 75 20 Nasal Cannula 4.0 36 09/11/16 00:00 98.6 75 21 105/51 94 Nasal Cannula 4.0 09/11/16 00:00 4.0 09/10/16 20:36 97.5 79 17 138/65 94 Nasal Cannula 4.0 09/10/16 20:00 4.0 09/10/16 20:00 72 09/10/16 17:18 68 29 117/57 97 Nasal Cannula 2.0 09/10/16 17:17 Nasal Cannula 2.0 28 09/10/16 17:17 97 Nasal Cannula 2.0 28 09/10/16 17:17 97.5 68 29 119/54 98 Nasal Cannula 4.0 40 09/10/16 15:58 68 29 119/54 98 Nasal Cannula 4.0 09/10/16 14:06 70 29 98/48 98 Nasal Cannula 4.0 09/10/16 13:26 63 29 95/48 97 Venturi Mask 40 71 09/10/16 12:46 65 29 97/44 98 40 71 09/10/16 12:31 123/53 09/10/16 11:00 71 29 123/73 98 40 09/10/16 10:43 75 29 98 Facial 40 Intake and Output 09/10/16 09/11/16 19:00 07:00 Intake Total 360 ml Output Total 850 ml 800 ml Balance -850 ml -440 ml Intake Oral 360 ml Output Urine Total 850 ml 800 ml Laboratory Tests 09/11/16 03:35: White Blood Count 9.0, Red Blood Count 3.36L, Hemoglobin 9.4L, Hematocrit 29.2L , Mean Corpuscular Volume 87, Mean Corpuscular Hemoglobin 27.9, Mean Corpuscular Hemoglobin Concent 32.2, Red Cell Distribution Width 16.2H, Platelet Count 190, Mean Platelet Volume 6.9, Neutrophils (%) (Auto) 78.2H, Lymphocytes (%) (Auto) 10.1L, Monocytes (%) (Auto) 9.7, Eosinophils (%) (Auto) 1.6, Basophils (%) (Auto) 0.3, Sodium Level 143, Potassium Level 4.0, Chloride Level 97L, Carbon Dioxide Level 35H, Anion Gap 11, Blood Urea Nitrogen 16, Creatinine 0.8, Estimat Glomerular Filtration Rate , Glucose Level 114H, Calcium Level 9.1, Total Bilirubin 1.4H, Direct Bilirubin 0.2, Aspartate Amino Transf (AST/SGOT) 14, Alanine Aminotransferase (ALT/SGPT) 12, Alkaline Phosphatase 80, Pro-B-Type Natriuretic Peptide 965H, Total Protein 6.9, Albumin 3.1L, Globulin 3.8, Albumin/Globulin Ratio 0.8L Height (Feet): 5 Height (Inches): 3.00 Weight (Pounds): 200 General Appearance: no apparent distress EENT: PERRL/EOMI Neck: supple Respiratory/Chest: rhonchi - bilaterally Abdomen: soft, other - multiple abdominal wall hernia, no pain Extremities: other - obese Neurologic: oriented x 3 Reggie Fernandez MD Sep 11, 2016 09:48
[2016-09-11 12:00] VITALS: BP 95/56
--- NOTE | 2016-09-11 12:43 | Consultation ---
History of Present Illness General Date patient seen: Sep 10, 2016 Chief Complaint: Dyspnea/Respdistress Reason for Consultation: Dr. Fernandez Present Illness HPI 85-year-old female with hx of CHF, COPD, morbid obesity. just discharged from , brought in by paramedics with CC of increased shortness of breath with gradual onset of symptoms. Patient had been noted to have increased orthopnea. No recent fever or chills. Pt has multiple abdominal wall hernia as well. Allergies: Coded Allergies: HYDROMORPHONE (Unverified Allergy, Unknown, 11/16/14) MORPHINE (Unverified Allergy, Unknown, 11/16/14) ONDANSETRON (Unverified Allergy, Unknown, 11/16/14) PHENYTOIN (Unverified Allergy, Unknown, 11/16/14) Medication History Scheduled Aspirin* (Aspir 81*), 81 MG ORAL DAILY, (Reported) Atorvastatin Calcium* (Atorvastatin Calcium*), 20 MG ORAL BEDTIME, (Reported) Captopril (Captopril), 25 MG PO DAILY, (Reported) Clonazepam* (Klonopin*), 0.5 MG ORAL DAILY, (Reported) Esomeprazole Magnesium (Nexium), 20 MG ORAL BID, (Reported) Furosemide (Furosemide), 40 MG ORAL DAILY, (Reported) Nebivolol Hcl* (Bystolic*), 5 MG ORAL DAILY, (Reported) Potassium Chloride (Potassium Chloride), 8 MEQ PO THREE TIMES A DAY, (Reported) Ranolazine* (Ranexa*), 500 MG ORAL EVERY 12 HOURS, (Reported) Sitagliptin (Januvia), 50 MG ORAL DAILY, (Reported) Solifenacin Succinate* (Vesicare*), 5 MG ORAL DAILY, (Reported) Valsartan/Hydrochlorothiazide 160-25MG (Diovan Hct 160-25 Mg Tablet), 1 TAB ORAL DAILY, (Reported) Scheduled PRN Diphenhydramine Hcl* (Benadryl*), 25 MG ORAL DAILY PRN for Itching, (Reported) Patient History Healthcare decision maker Resuscitation status Advanced Directive on File Past Medical/Surgical History Past Medical/Surgical History: (1) Obesity (2) COPD (chronic obstructive pulmonary disease) (3) Hernia (4) DM (diabetes mellitus) (5) Anemia (6) Partial small bowel obstruction Review of Systems All Other Systems: negative except mentioned in HPI Physical Exam General Appearance: WD/WN Lines, tubes and drains: peripheral HEENT: normocephalic, atraumatic Neck: non-tender, normal alignment Respiratory/Chest: rhonchi - bilaterally Cardiovascular/Chest: normal peripheral pulses, normal rate Abdomen: normal bowel sounds, non tender Genitourinary/Rectal: normal genital exam Extremities: normal range of motion Skin Exam: normal pigmentation 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 Last 24 Hour Vital Signs Date Time Temp Pulse Resp B/P Pulse Ox O2 Delivery O2 Flow Rate FiO2 09/11/16 12:00 4.0 09/11/16 12:00 99.1 78 20 95/56 95 Nasal Cannula 3.0 09/11/16 09:00 119/64 09/11/16 08:00 88 09/11/16 08:00 4.0 09/11/16 08:00 98.4 81 18 119/64 91 Nasal Cannula 3.0 09/11/16 06:41 Nasal Cannula 3.0 09/11/16 06:40 97 Nasal Cannula 3.0 09/11/16 06:33 71 22 97 Nasal Cannula 3.0 09/11/16 06:20 72 20 91 Nasal Cannula 4.0 09/11/16 04:00 75 09/11/16 04:00 98.2 72 24 134/70 100 Nasal Cannula 4.0 09/11/16 04:00 4.0 09/11/16 01:17 72 20 98 Nasal Cannula 4.0 36 09/11/16 01:06 75 20 92 Nasal Cannula 4.0 36 09/11/16 01:06 75 20 Nasal Cannula 4.0 36 09/11/16 00:00 98.6 75 21 105/51 94 Nasal Cannula 4.0 09/11/16 00:00 4.0 09/10/16 20:36 97.5 79 17 138/65 94 Nasal Cannula 4.0 09/10/16 20:00 4.0 09/10/16 20:00 72 09/10/16 17:18 68 29 117/57 97 Nasal Cannula 2.0 09/10/16 17:17 Nasal Cannula 2.0 28 09/10/16 17:17 97 Nasal Cannula 2.0 28 09/10/16 17:17 97.5 68 29 119/54 98 Nasal Cannula 4.0 40 09/10/16 15:58 68 29 119/54 98 Nasal Cannula 4.0 09/10/16 14:06 70 29 98/48 98 Nasal Cannula 4.0 09/10/16 13:26 63 29 95/48 97 Venturi Mask 40 71 09/10/16 12:46 65 29 97/44 98 40 71 Intake and Output 09/10/16 09/11/16 19:00 07:00 Intake Total 360 ml Output Total 850 ml 800 ml Balance -850 ml -440 ml Intake Oral 360 ml Output Urine Total 850 ml 800 ml Laboratory Tests Test 09/11/16 03:35 White Blood Count 9.0 K/UL (4.8-10.8) Red Blood Count 3.36 M/UL (4.20-5.40) L Hemoglobin 9.4 G/DL (12.0-16.0) L Hematocrit 29.2 % (37.0-47.0) L Mean Corpuscular Volume 87 FL (80-99) Mean Corpuscular Hemoglobin 27.9 PG (27.0-31.0) Mean Corpuscular Hemoglobin Concent 32.2 G/DL (32.0-36.0) Red Cell Distribution Width 16.2 % (11.6-14.8) H Platelet Count 190 K/UL (150-450) Mean Platelet Volume 6.9 FL (6.5-10.1) Neutrophils (%) (Auto) 78.2 % (45.0-75.0) H Lymphocytes (%) (Auto) 10.1 % (20.0-45.0) L Monocytes (%) (Auto) 9.7 % (1.0-10.0) Eosinophils (%) (Auto) 1.6 % (0.0-3.0) Basophils (%) (Auto) 0.3 % (0.0-2.0) Sodium Level 143 mEQ/L (135-145) Potassium Level 4.0 mEQ/L (3.4-4.9) Chloride Level 97 mEQ/L (98-107) L Carbon Dioxide Level 35 mEQ/L (20-30) H Anion Gap 11 (5-15) Blood Urea Nitrogen 16 mg/dL (7-23) Creatinine 0.8 mg/dL (0.5-0.9) Estimat Glomerular Filtration Rate mL/min (>60) Glucose Level 114 mg/dL (74-106) H Calcium Level 9.1 mg/dL (8.6-10.2) Total Bilirubin 1.4 mg/dL (0.0-1.2) H Direct Bilirubin 0.2 mg/dL (0.1-0.3) Aspartate Amino Transf (AST/SGOT) 14 U/L (5-40) Alanine Aminotransferase (ALT/SGPT) 12 U/L (3-33) Alkaline Phosphatase 80 U/L (35-104) Pro-B-Type Natriuretic Peptide 965 pg/mL (0-450) H Total Protein 6.9 g/dL (6.6-8.7) Albumin 3.1 g/dL (3.5-5.2) L Globulin 3.8 g/dL Albumin/Globulin Ratio 0.8 (1.0-2.7) L Height (Feet): 5 Height (Inches): 3.00 Weight (Pounds): 200 Medications Current Medications Medications (Trade) Dose Ordered Sig/Volodymyr Route PRN Reason Start Time Stop Time Status Last Admin Dose Admin Albuterol/ Ipratropium (DuoNeb 0.5-3(2.5)mg/3ml) 3 ml EVERY 4 HOURS PRN HHN Shortness of Breath 09/10/16 19:00 09/15/16 18:59 09/11/16 06:22 Aspirin (Ecotrin) 81 mg DAILY ORAL 09/10/16 09:00 10/10/16 08:59 09/11/16 09:27 Atorvastatin Calcium (Lipitor) 20 mg BEDTIME ORAL 09/10/16 21:00 10/10/16 20:59 09/10/16 21:39 Captopril (Capoten) 25 mg DAILY ORAL 09/10/16 13:00 10/10/16 12:59 09/10/16 12:31 Clonazepam (KlonoPIN) 0.5 mg BEDTIME PRN ORAL Restlessness 09/10/16 21:00 09/17/16 20:59 09/10/16 21:39 Dextrose (Dextrose 50%) STAT PRN IV Hypoglycemia 09/10/16 07:30 10/10/16 07:29 Furosemide (Lasix) 40 mg DAILY ORAL 09/10/16 13:30 10/10/16 13:29 09/11/16 09:27 Heparin Sodium (Porcine) (Heparin 5000 units/ml) 5,000 units BID SUBQ 09/10/16 09:00 10/10/16 08:59 09/10/16 21:43 Insulin Aspart (NovoLOG) BEFORE MEALS AND HS SUBQ 09/10/16 21:30 10/10/16 21:29 09/11/16 12:09 Nebivolol (Bystolic) 5 mg DAILY ORAL 09/10/16 13:00 10/10/16 12:59 09/11/16 09:26 Pantoprazole (Protonix) 40 mg DAILY ORAL 09/10/16 12:30 10/10/16 12:29 09/11/16 09:27 Potassium Chloride (K-Dur) 10 meq TID ORAL 09/10/16 13:00 10/10/16 12:59 09/11/16 12:09 Ranolazine (Ranexa ER 500mg) 500 mg Q12HR ORAL 09/10/16 21:00 10/10/16 20:59 09/11/16 09:26 Sitagliptin Phosphate (Januvia) 50 mg ACBREAKFAST ORAL 09/11/16 06:30 10/11/16 06:29 09/11/16 06:24 Solifenacin (Vesicare) 5 mg DAILY ORAL 09/11/16 09:00 10/11/16 08:59 Assessment/Plan Problem List: (1) CHF exacerbation ICD Codes: I50.9 - Heart failure, unspecified SNOMED: 67594852 (2) COPD (chronic obstructive pulmonary disease) ICD Codes: J44.9 - Chronic obstructive pulmonary disease, unspecified SNOMED: 64976381 (3) Obesity ICD Codes: E66.9 - Obesity SNOMED: 861784291 (4) Anemia ICD Codes: D64.9 - Anemia SNOMED: 136732047 (5) DM (diabetes mellitus) ICD Codes: E11.9 - DM (diabetes mellitus) SNOMED: 03206832 Assessment/Plan respiratory treatment f/u intake output on diuretics surgery consult, for abdominal wall hernia echocardiogram dvt prophylaxis LATRICE CHRISTOPHER Sep 11, 2016 12:43
--- NOTE | 2016-09-11 12:50 | Pulmonology Progress Note ---
Assessment/Plan Problems: (1) CHF exacerbation (2) COPD (chronic obstructive pulmonary disease) (3) Obesity (4) Anemia (5) DM (diabetes mellitus) Assessment/Plan continue diuretics anemia w/u check cultures abx as per ID surgery note appreciated dvt prophylaxis Subjective Interval Events: less short of breath Allergies: Coded Allergies: HYDROMORPHONE (Unverified Allergy, Unknown, 11/16/14) MORPHINE (Unverified Allergy, Unknown, 11/16/14) ONDANSETRON (Unverified Allergy, Unknown, 11/16/14) PHENYTOIN (Unverified Allergy, Unknown, 11/16/14) Objective Last 24 Hour Vital Signs Date Time Temp Pulse Resp B/P Pulse Ox O2 Delivery O2 Flow Rate FiO2 09/11/16 12:00 4.0 09/11/16 12:00 99.1 78 20 95/56 95 Nasal Cannula 3.0 09/11/16 09:00 119/64 09/11/16 08:00 88 09/11/16 08:00 4.0 09/11/16 08:00 98.4 81 18 119/64 91 Nasal Cannula 3.0 09/11/16 06:41 Nasal Cannula 3.0 09/11/16 06:40 97 Nasal Cannula 3.0 09/11/16 06:33 71 22 97 Nasal Cannula 3.0 09/11/16 06:20 72 20 91 Nasal Cannula 4.0 09/11/16 04:00 75 09/11/16 04:00 98.2 72 24 134/70 100 Nasal Cannula 4.0 09/11/16 04:00 4.0 09/11/16 01:17 72 20 98 Nasal Cannula 4.0 36 09/11/16 01:06 75 20 92 Nasal Cannula 4.0 36 09/11/16 01:06 75 20 Nasal Cannula 4.0 36 09/11/16 00:00 98.6 75 21 105/51 94 Nasal Cannula 4.0 09/11/16 00:00 4.0 09/10/16 20:36 97.5 79 17 138/65 94 Nasal Cannula 4.0 09/10/16 20:00 4.0 09/10/16 20:00 72 09/10/16 17:18 68 29 117/57 97 Nasal Cannula 2.0 09/10/16 17:17 Nasal Cannula 2.0 28 09/10/16 17:17 97 Nasal Cannula 2.0 28 09/10/16 17:17 97.5 68 29 119/54 98 Nasal Cannula 4.0 40 09/10/16 15:58 68 29 119/54 98 Nasal Cannula 4.0 09/10/16 14:06 70 29 98/48 98 Nasal Cannula 4.0 09/10/16 13:26 63 29 95/48 97 Venturi Mask 40 71 Intake and Output 09/10/16 09/11/16 19:00 07:00 Intake Total 360 ml Output Total 850 ml 800 ml Balance -850 ml -440 ml Intake Oral 360 ml Output Urine Total 850 ml 800 ml General Appearance: WD/WN HEENT: normocephalic, atraumatic Respiratory/Chest: decreased breath sounds, crackles/rales Cardiovascular: regular rhythm Abdomen: normal bowel sounds, soft, non tender Genitourinary: normal external genitalia Extremities: no cyanosis Skin: no lesions 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, no motor/sensory deficits Laboratory Tests 09/11/16 03:35: White Blood Count 9.0, Red Blood Count 3.36L, Hemoglobin 9.4L, Hematocrit 29.2L , Mean Corpuscular Volume 87, Mean Corpuscular Hemoglobin 27.9, Mean Corpuscular Hemoglobin Concent 32.2, Red Cell Distribution Width 16.2H, Platelet Count 190, Mean Platelet Volume 6.9, Neutrophils (%) (Auto) 78.2H, Lymphocytes (%) (Auto) 10.1L, Monocytes (%) (Auto) 9.7, Eosinophils (%) (Auto) 1.6, Basophils (%) (Auto) 0.3, Sodium Level 143, Potassium Level 4.0, Chloride Level 97L, Carbon Dioxide Level 35H, Anion Gap 11, Blood Urea Nitrogen 16, Creatinine 0.8, Estimat Glomerular Filtration Rate , Glucose Level 114H, Calcium Level 9.1, Total Bilirubin 1.4H, Direct Bilirubin 0.2, Aspartate Amino Transf (AST/SGOT) 14, Alanine Aminotransferase (ALT/SGPT) 12, Alkaline Phosphatase 80, Pro-B-Type Natriuretic Peptide 965H, Total Protein 6.9, Albumin 3.1L, Globulin 3.8, Albumin/Globulin Ratio 0.8L Current Medications Medications (Trade) Dose Ordered Sig/Volodymyr Route PRN Reason Start Time Stop Time Status Last Admin Dose Admin Albuterol/ Ipratropium (DuoNeb 0.5-3(2.5)mg/3ml) 3 ml EVERY 4 HOURS PRN HHN Shortness of Breath 09/10/16 19:00 09/15/16 18:59 09/11/16 06:22 Aspirin (Ecotrin) 81 mg DAILY ORAL 09/10/16 09:00 10/10/16 08:59 09/11/16 09:27 Atorvastatin Calcium (Lipitor) 20 mg BEDTIME ORAL 09/10/16 21:00 10/10/16 20:59 09/10/16 21:39 Captopril (Capoten) 25 mg DAILY ORAL 09/10/16 13:00 10/10/16 12:59 09/10/16 12:31 Clonazepam (KlonoPIN) 0.5 mg BEDTIME PRN ORAL Restlessness 09/10/16 21:00 09/17/16 20:59 09/10/16 21:39 Dextrose (Dextrose 50%) STAT PRN IV Hypoglycemia 09/10/16 07:30 10/10/16 07:29 Furosemide (Lasix) 40 mg DAILY ORAL 09/10/16 13:30 10/10/16 13:29 09/11/16 09:27 Heparin Sodium (Porcine) (Heparin 5000 units/ml) 5,000 units BID SUBQ 09/10/16 09:00 10/10/16 08:59 09/10/16 21:43 Insulin Aspart (NovoLOG) BEFORE MEALS AND HS SUBQ 09/10/16 21:30 10/10/16 21:29 09/11/16 12:09 Nebivolol (Bystolic) 5 mg DAILY ORAL 09/10/16 13:00 10/10/16 12:59 09/11/16 09:26 Pantoprazole (Protonix) 40 mg DAILY ORAL 09/10/16 12:30 10/10/16 12:29 09/11/16 09:27 Potassium Chloride (K-Dur) 10 meq TID ORAL 09/10/16 13:00 10/10/16 12:59 09/11/16 12:09 Ranolazine (Ranexa ER 500mg) 500 mg Q12HR ORAL 09/10/16 21:00 10/10/16 20:59 09/11/16 09:26 Sitagliptin Phosphate (Januvia) 50 mg ACBREAKFAST ORAL 09/11/16 06:30 10/11/16 06:29 09/11/16 06:24 Solifenacin (Vesicare) 5 mg DAILY ORAL 09/11/16 09:00 10/11/16 08:59 LATRICE CHRISTOPHER Sep 11, 2016 12:50
[2016-09-11] MEDS: DuoNeb 0.5-3(2.5)mg/3ml neb HHN SCH ×3 (15:00→23:00)
[2016-09-11 16:00] VITALS: BP 127/74
[2016-09-11] MEDS: Heparin 5000 units/ml inj SUBQ SCH (17:24)
[2016-09-11 20:00] VITALS: BP 112/68
[2016-09-11] MEDS: Atorvastatin 20mg tab ORAL SCH (20:01)
[2016-09-11] MEDS ORDERED: Miralax 17gm pkt ORAL SCH (21:00)
--- NOTE | 2016-09-11 23:58 | Consultation ---
DATE OF CONSULTATION: 09/11/2016 CONSULTING PHYSICIAN: Ortiz Del Valle M.D. REFERRING PHYSICIAN: Nathan Mauricio M.D. CHIEF COMPLAINT: Anemia. HISTORY OF PRESENT ILLNESS: The patient is a very pleasant 85-year-old female. Most of history is per daughter at the bedside. The patient is speaking Indonesian. She was admitted to the hospital with complaint of shortness of breath. The patient was also found to be profoundly anemic, so GI consult was requested for evaluation. There is no nausea, no vomiting, and no abdominal pain. Last bowel movement 3 days ago. No melena. No hematochezia. PAST MEDICAL HISTORY: 1. History of cataract. 2. Hypercholesterolemia. 3. Asthma. 4. Hiatal hernia. 5. History of breast cancer. 6. History of diabetes. ALLERGIES: To hydromorphone, Zofran, and phenytoin. MEDICATIONS: Please see medication reconciliation list. PAST SURGICAL HISTORY: 1. Left mastectomy. 2. Cataract surgery. FAMILY HISTORY: Noncontributory. SOCIAL HISTORY: There is no history of tobacco, alcohol, or drug abuse. REVIEW OF SYSTEMS: A 10-point review of systems was performed and pertinent positives in History of Present Illness. PHYSICAL EXAMINATION: GENERAL: The patient is a well-developed female, in no acute distress. VITAL SIGNS: Most recent vital signs are temperature 99.1 degrees, pulse 70, respirations 20, and blood pressure is 95/56. HEENT: Normocephalic. Eyes, pale conjunctivae. NECK: Supple. No lymphadenopathy. CARDIOVASCULAR: Regular rhythm. Plus S1 and S2. No obvious murmur. LUNGS: Decreased breath sounds bilaterally diffusely. ABDOMEN: Soft and nontender. No rebound. No guarding. EXTREMITIES: No cyanosis. No clubbing. No edema. LABORATORY DATA: White count is 9, hemoglobin 9.4, hematocrit 29.2, and platelet count is 190,000. ASSESSMENT AND PLAN: This is an 85-year-old female who is admitted to hospital with shortness of breath. She has a history of diabetes. There is no evidence of normocytic anemia with any obvious gastrointestinal bleeding. Plan to do anemia workup. Start the patient on Colace and MiraLax for constipation. Send the stool for occult blood. Gastrointestinal procedure is on hold for now. I want to thank Dr. Mauricio for this kind referral. Ortiz Del Valle M.D. DR: RUSSELL JOB#: [id number] CC: Nathan Mauricio M.D.; Fax#: [phone]
[2016-09-12] VITALS: BP_SYST 128; BP_SYST 132; BP_DIAS 63; BP_DIAS 72
[2016-09-12] MEDS: DuoNeb 0.5-3(2.5)mg/3ml neb HHN SCH ×5 (03:00→22:46)
[2016-09-12 04:00] VITALS: BP 134/63
[2016-09-12 04:45] LABS: BASOPHILS % (AUTO) 0.6 % (0.0-2.0); EOSINOPHILS % (AUTO) 2.4 % (0.0-3.0); LYMPHOCYTES % (AUTO) 10.8 % (20.0-45.0); MEAN CORPUSCULAR HEMOGLOBIN 27.7 PG (27.0-31.0); MEAN CORPUSCULAR VOLUME 86 FL (80-99); MEAN PLATELET VOLUME 6.8 FL (6.5-10.1); MONOCYTES % (AUTO) 9.3 % (1.0-10.0); NEUTROPHILS % (AUTO) 76.9 % (45.0-75.0); PLATELET COUNT 202 K/UL (150-450); RED BLOOD COUNT 3.54 M/UL (4.20-5.40); RED CELL DISTRIBUTION WIDTH 16.4 % (11.6-14.8)
[2016-09-12 05:17] LABS: CRP QUANT 15.5 mg/dL (< 0.5)
[2016-09-12 05:18] LABS: HEMOLYSIS 0; IRON 26 ug/dL (37-145); TOTAL IRON BINDING CAPACITY 221 ug/dL (250-400)
[2016-09-12 05:23] LABS: ALANINE AMINOTRANSFERASE 11 U/L (3-33); ALBUMIN/GLOBULIN RATIO 0.7 (1.0-2.7); ANION GAP 9 (5-15); ASPARTATE AMINO TRANSFERASE 12 U/L (5-40); CALCIUM 9.3 mg/dL (8.6-10.2); CARBON DIOXIDE 38 mEQ/L (20-30); CHLORIDE 96 mEQ/L (98-107); CREATININE 0.8 mg/dL (0.5-0.9); HEMOLYSIS 11; POTASSIUM 4.3 mEQ/L (3.4-4.9); SODIUM 143 mEQ/L (135-145); TOTAL PROTEIN 7.1 g/dL (6.6-8.7)
[2016-09-12] MEDS: NovoLOG Insulin Flexpen SUBQ SCH ×4 (05:41→22:45)
[2016-09-12] MEDS: sitaGLIPtin 50mg tab ORAL SCH (06:30)
[2016-09-12 06:35] LABS: BILIRUBIN,DIRECT 0.3 mg/dL (0.1-0.3)
[2016-09-12 08:00] VITALS: BP 134/69
[2016-09-12] MEDS: Bystolic 2.5mg Tab ORAL SCH (08:18)
[2016-09-12] MEDS: Aspirin EC 81mg tab ORAL SCH (08:18)
[2016-09-12] MEDS: Furosemide 40mg tab ORAL SCH (08:19)
[2016-09-12] MEDS: Ranolazine 500mg tab ORAL SCH ×2 (08:19→22:45)
[2016-09-12] MEDS: Captopril 25mg tab ORAL SCH (08:27)
[2016-09-12] MEDS: Solifenacin 10mg tab ORAL SCH (08:27)
[2016-09-12] MEDS: Heparin 5000 units/ml inj SUBQ SCH ×2 (08:51→17:36)
--- NOTE | 2016-09-12 09:20 | Infectious Diseases Prog Note ---
Assessment/Plan Assessment/Plan ASSESSMENT: 85 y/o female with: // Acute on chronic diastolic CHF exacerbation - trop(-) x1, BNP elevated - CXR 09/10: Interstitial edema noted. The heart is enlarged - TTE 10/2014: EF 55-60%, grade I diastolic dysfunction, mild // Leukocytosis, mild - resolved, afebrile, m/l stress response - UA benign, no localizing s/sx infection // Acute respiratory failure / BiPAP 2/2 CHF, effusion // DM2 // Large ventral hernia // Morbid obesity // No ABX allergies // Full Code PLAN: - monitor pt off of ABX - monitor CBC, temperatures, gandhi-culture if acute change - monitor BMP - diuresis - BiPAP prn Subjective Allergies: Coded Allergies: HYDROMORPHONE (Unverified Allergy, Unknown, 11/16/14) MORPHINE (Unverified Allergy, Unknown, 11/16/14) ONDANSETRON (Unverified Allergy, Unknown, 11/16/14) PHENYTOIN (Unverified Allergy, Unknown, 11/16/14) Subjective remains afebrile. appears comfortable Objective Vital Signs Last 24 Hour Vital Signs Date Time Temp Pulse Resp B/P Pulse Ox O2 Delivery O2 Flow Rate FiO2 09/12/16 08:27 134/69 09/12/16 07:28 80 18 98 Nasal Cannula 3.0 09/12/16 07:18 96 Nasal Cannula 3.0 09/12/16 07:18 Nasal Cannula 3.0 09/12/16 07:18 82 16 96 Nasal Cannula 3.0 09/12/16 04:00 4.0 09/12/16 04:00 98.1 88 18 134/63 96 Room Air 09/12/16 04:00 90 09/12/16 03:19 Nasal Cannula 3.0 09/12/16 03:19 Nasal Cannula 4.0 09/12/16 00:00 77 09/12/16 00:00 98.2 79 18 132/63 96 Room Air 09/12/16 00:00 4.0 09/11/16 23:15 Nasal Cannula 3.0 09/11/16 23:14 Nasal Cannula 4.0 09/11/16 20:00 85 09/11/16 20:00 4.0 09/11/16 20:00 98.4 84 18 112/68 96 Room Air 09/11/16 19:30 84 18 98 Nasal Cannula 3.0 09/11/16 19:28 82 18 93 Nasal Cannula 3.0 09/11/16 19:28 Nasal Cannula 3.0 09/11/16 19:28 93 Nasal Cannula 3.0 09/11/16 16:00 4.0 09/11/16 16:00 69 09/11/16 16:00 98.8 77 17 127/74 94 Room Air 09/11/16 15:18 Nasal Cannula 3.0 09/11/16 15:17 Nasal Cannula 4.0 09/11/16 12:00 79 09/11/16 12:00 4.0 09/11/16 12:00 99.1 78 20 95/56 95 Nasal Cannula 3.0 Height (Feet): 5 Height (Inches): 3.00 Weight (Pounds): 200 General Appearance: no acute distress Respiratory/Chest: no respiratory distress Cardiovascular: normal rate, regular rhythm Abdomen: normal bowel sounds, soft, non tender, non distended Microbiology Date/Time Source Procedure Growth Status 09/10/16 04:42 Nasal Nares MRSA Culture - Final NO METHICILLIN RESISTANT STAPH AUREUS... Complete 09/10/16 04:42 Rectum VRE Culture - Final NO VANCOMYCIN RESISTANT ENTEROCOCCUS ... Complete Laboratory Tests Test 09/12/16 03:50 White Blood Count 9.0 K/UL (4.8-10.8) Red Blood Count 3.54 M/UL (4.20-5.40) L Hemoglobin 9.8 G/DL (12.0-16.0) L Hematocrit 30.6 % (37.0-47.0) L Mean Corpuscular Volume 86 FL (80-99) Mean Corpuscular Hemoglobin 27.7 PG (27.0-31.0) Mean Corpuscular Hemoglobin Concent 32.0 G/DL (32.0-36.0) Red Cell Distribution Width 16.4 % (11.6-14.8) H Platelet Count 202 K/UL (150-450) Mean Platelet Volume 6.8 FL (6.5-10.1) Neutrophils (%) (Auto) 76.9 % (45.0-75.0) H Lymphocytes (%) (Auto) 10.8 % (20.0-45.0) L Monocytes (%) (Auto) 9.3 % (1.0-10.0) Eosinophils (%) (Auto) 2.4 % (0.0-3.0) Basophils (%) (Auto) 0.6 % (0.0-2.0) Erythrocyte Sedimentation Rate 109 MM/HR (0-42) H Sodium Level 143 mEQ/L (135-145) Potassium Level 4.3 mEQ/L (3.4-4.9) Chloride Level 96 mEQ/L (98-107) L Carbon Dioxide Level 38 mEQ/L (20-30) H Anion Gap 9 (5-15) Blood Urea Nitrogen 18 mg/dL (7-23) Creatinine 0.8 mg/dL (0.5-0.9) Estimat Glomerular Filtration Rate mL/min (>60) Glucose Level 138 mg/dL (74-106) H Calcium Level 9.3 mg/dL (8.6-10.2) Phosphorus Level 3.0 mg/dL (2.5-4.8) Magnesium Level 2.0 mg/dL (1.7-2.5) Iron Level 26 ug/dL (37-145) L Total Iron Binding Capacity 221 ug/dL (250-400) L Percent Iron Saturation 12 % (15-50) L Unsaturated Iron Binding 195 ug/dL (112-346) Total Bilirubin 1.5 mg/dL (0.0-1.2) H Direct Bilirubin 0.3 mg/dL (0.1-0.3) Aspartate Amino Transf (AST/SGOT) 12 U/L (5-40) Alanine Aminotransferase (ALT/SGPT) 11 U/L (3-33) Alkaline Phosphatase 62 U/L (35-104) C-Reactive Protein, Quantitative 15.5 mg/dL (< 0.5) H Total Protein 7.1 g/dL (6.6-8.7) Albumin 3.1 g/dL (3.5-5.2) L Globulin 4.0 g/dL Albumin/Globulin Ratio 0.7 (1.0-2.7) L Carcinoembryonic Antigen 1.4 ng/mL Current Medications Medications (Trade) Dose Ordered Sig/Volodymyr Route PRN Reason Start Time Stop Time Status Last Admin Dose Admin Albuterol/ Ipratropium (DuoNeb 0.5-3(2.5)mg/3ml) 3 ml Q4HRT HHN 09/11/16 15:00 09/16/16 14:59 09/12/16 07:18 Aspirin (Ecotrin) 81 mg DAILY ORAL 09/10/16 09:00 10/10/16 08:59 09/12/16 08:18 Atorvastatin Calcium (Lipitor) 20 mg BEDTIME ORAL 09/10/16 21:00 10/10/16 20:59 09/11/16 20:01 Captopril (Capoten) 25 mg DAILY ORAL 09/10/16 13:00 10/10/16 12:59 09/10/16 12:31 Clonazepam (KlonoPIN) 0.5 mg BEDTIME PRN ORAL Restlessness 09/10/16 21:00 09/17/16 20:59 09/10/16 21:39 Dextrose (Dextrose 50%) STAT PRN IV Hypoglycemia 09/10/16 07:30 10/10/16 07:29 Furosemide (Lasix) 40 mg DAILY ORAL 09/10/16 13:30 10/10/16 13:29 09/12/16 08:19 Heparin Sodium (Porcine) (Heparin 5000 units/ml) 5,000 units BID SUBQ 09/10/16 09:00 10/10/16 08:59 09/12/16 08:51 Insulin Aspart (NovoLOG) BEFORE MEALS AND HS SUBQ 09/10/16 21:30 10/10/16 21:29 09/11/16 12:09 Nebivolol (Bystolic) 5 mg DAILY ORAL 09/10/16 13:00 10/10/16 12:59 09/12/16 08:18 Pantoprazole (Protonix) 40 mg DAILY ORAL 09/10/16 12:30 10/10/16 12:29 09/12/16 08:18 Polyethylene Glycol (Miralax) 17 gm BEDTIME ORAL 09/11/16 21:00 10/11/16 20:59 09/11/16 20:01 Potassium Chloride (K-Dur) 10 meq TID ORAL 09/10/16 13:00 10/10/16 12:59 09/12/16 08:19 Ranolazine (Ranexa ER 500mg) 500 mg Q12HR ORAL 09/10/16 21:00 10/10/16 20:59 09/12/16 08:19 Sitagliptin Phosphate (Januvia) 50 mg ACBREAKFAST ORAL 09/11/16 06:30 10/11/16 06:29 09/12/16 06:30 Solifenacin (Vesicare) 5 mg DAILY ORAL 09/11/16 09:00 10/11/16 08:59 KALEIGH SAUCEDA Sep 12, 2016 09:20
--- NOTE | 2016-09-12 09:49 | Pulmonology Progress Note ---
Assessment/Plan Problems: (1) CHF exacerbation (2) COPD (chronic obstructive pulmonary disease) (3) Obesity (4) Anemia (5) DM (diabetes mellitus) Assessment/Plan continue diuretics anemia w/u check cultures abx as per ID, off abx, watch wbc, and temp off antibiotics dvt prophylaxis pt/ot med/surg Subjective ROS Limited/Unobtainable: No Interval Events: breathing better Allergies: Coded Allergies: HYDROMORPHONE (Unverified Allergy, Unknown, 11/16/14) MORPHINE (Unverified Allergy, Unknown, 11/16/14) ONDANSETRON (Unverified Allergy, Unknown, 11/16/14) PHENYTOIN (Unverified Allergy, Unknown, 11/16/14) Objective Last 24 Hour Vital Signs Date Time Temp Pulse Resp B/P Pulse Ox O2 Delivery O2 Flow Rate FiO2 09/12/16 08:27 134/69 09/12/16 07:28 80 18 98 Nasal Cannula 3.0 09/12/16 07:18 96 Nasal Cannula 3.0 09/12/16 07:18 Nasal Cannula 3.0 09/12/16 07:18 82 16 96 Nasal Cannula 3.0 09/12/16 04:00 4.0 09/12/16 04:00 98.1 88 18 134/63 96 Room Air 09/12/16 04:00 90 09/12/16 03:19 Nasal Cannula 3.0 09/12/16 03:19 Nasal Cannula 4.0 09/12/16 00:00 77 09/12/16 00:00 98.2 79 18 132/63 96 Room Air 09/12/16 00:00 4.0 09/11/16 23:15 Nasal Cannula 3.0 09/11/16 23:14 Nasal Cannula 4.0 09/11/16 20:00 85 09/11/16 20:00 4.0 09/11/16 20:00 98.4 84 18 112/68 96 Room Air 09/11/16 19:30 84 18 98 Nasal Cannula 3.0 09/11/16 19:28 82 18 93 Nasal Cannula 3.0 09/11/16 19:28 Nasal Cannula 3.0 09/11/16 19:28 93 Nasal Cannula 3.0 09/11/16 16:00 4.0 09/11/16 16:00 69 09/11/16 16:00 98.8 77 17 127/74 94 Room Air 09/11/16 15:18 Nasal Cannula 3.0 09/11/16 15:17 Nasal Cannula 4.0 09/11/16 12:00 79 09/11/16 12:00 4.0 09/11/16 12:00 99.1 78 20 95/56 95 Nasal Cannula 3.0 Intake and Output 09/11/16 09/12/16 19:00 07:00 Intake Total 240 ml Output Total 475 ml 750 ml Balance -235 ml -750 ml Intake Oral 240 ml Output Urine Total 475 ml 750 ml General Appearance: WD/WN HEENT: normocephalic, atraumatic Respiratory/Chest: chest wall non-tender, lungs clear Breasts: no masses Cardiovascular: normal peripheral pulses, regular rhythm Abdomen: normal bowel sounds, soft, non tender Genitourinary: normal external genitalia Extremities: no clubbing Skin: no lesions Microbiology Date/Time Source Procedure Growth Status 09/10/16 04:42 Nasal Nares MRSA Culture - Final NO METHICILLIN RESISTANT STAPH AUREUS... Complete 09/10/16 04:42 Rectum VRE Culture - Final NO VANCOMYCIN RESISTANT ENTEROCOCCUS ... Complete Laboratory Tests 09/12/16 03:50: White Blood Count 9.0, Red Blood Count 3.54L, Hemoglobin 9.8L, Hematocrit 30.6L , Mean Corpuscular Volume 86, Mean Corpuscular Hemoglobin 27.7, Mean Corpuscular Hemoglobin Concent 32.0, Red Cell Distribution Width 16.4H, Platelet Count 202, Mean Platelet Volume 6.8, Neutrophils (%) (Auto) 76.9H, Lymphocytes (%) (Auto) 10.8L, Monocytes (%) (Auto) 9.3, Eosinophils (%) (Auto) 2.4, Basophils (%) (Auto) 0.6, Erythrocyte Sedimentation Rate 109H, Sodium Level 143, Potassium Level 4.3, Chloride Level 96L, Carbon Dioxide Level 38H, Anion Gap 9, Blood Urea Nitrogen 18, Creatinine 0.8, Estimat Glomerular Filtration Rate , Glucose Level 138H, Calcium Level 9.3, Phosphorus Level 3.0, Magnesium Level 2.0, Iron Level 26L, Total Iron Binding Capacity 221L, Percent Iron Saturation 12L, Unsaturated Iron Binding 195, Total Bilirubin 1.5H, Direct Bilirubin 0.3, Aspartate Amino Transf (AST/SGOT) 12, Alanine Aminotransferase ( ALT/SGPT) 11, Alkaline Phosphatase 62, C-Reactive Protein, Quantitative 15.5H, Total Protein 7.1, Albumin 3.1L, Globulin 4.0, Albumin/Globulin Ratio 0.7L, Carcinoembryonic Antigen 1.4 Current Medications Medications (Trade) Dose Ordered Sig/Volodymyr Route PRN Reason Start Time Stop Time Status Last Admin Dose Admin Albuterol/ Ipratropium (DuoNeb 0.5-3(2.5)mg/3ml) 3 ml Q4HRT HHN 09/11/16 15:00 09/16/16 14:59 09/12/16 07:18 Aspirin (Ecotrin) 81 mg DAILY ORAL 09/10/16 09:00 10/10/16 08:59 09/12/16 08:18 Atorvastatin Calcium (Lipitor) 20 mg BEDTIME ORAL 09/10/16 21:00 10/10/16 20:59 09/11/16 20:01 Captopril (Capoten) 25 mg DAILY ORAL 09/10/16 13:00 10/10/16 12:59 09/10/16 12:31 Clonazepam (KlonoPIN) 0.5 mg BEDTIME PRN ORAL Restlessness 09/10/16 21:00 09/17/16 20:59 09/10/16 21:39 Dextrose (Dextrose 50%) STAT PRN IV Hypoglycemia 09/10/16 07:30 10/10/16 07:29 Furosemide (Lasix) 40 mg DAILY ORAL 09/10/16 13:30 10/10/16 13:29 09/12/16 08:19 Heparin Sodium (Porcine) (Heparin 5000 units/ml) 5,000 units BID SUBQ 09/10/16 09:00 10/10/16 08:59 09/12/16 08:51 Insulin Aspart (NovoLOG) BEFORE MEALS AND HS SUBQ 09/10/16 21:30 10/10/16 21:29 09/11/16 12:09 Nebivolol (Bystolic) 5 mg DAILY ORAL 09/10/16 13:00 10/10/16 12:59 09/12/16 08:18 Pantoprazole (Protonix) 40 mg DAILY ORAL 09/10/16 12:30 10/10/16 12:29 09/12/16 08:18 Polyethylene Glycol (Miralax) 17 gm BEDTIME ORAL 09/11/16 21:00 10/11/16 20:59 09/11/16 20:01 Potassium Chloride (K-Dur) 10 meq TID ORAL 09/10/16 13:00 10/10/16 12:59 09/12/16 08:19 Ranolazine (Ranexa ER 500mg) 500 mg Q12HR ORAL 09/10/16 21:00 10/10/16 20:59 09/12/16 08:19 Sitagliptin Phosphate (Januvia) 50 mg ACBREAKFAST ORAL 09/11/16 06:30 10/11/16 06:29 09/12/16 06:30 Solifenacin (Vesicare) 5 mg DAILY ORAL 09/11/16 09:00 10/11/16 08:59 LATRICE CHRISTOPHER Sep 12, 2016 09:49
[2016-09-12 12:00] VITALS: BP 120/73
--- NOTE | 2016-09-12 13:38 | General Progress Note ---
Assessment/Plan Assessment/Plan Assessment constipation Anemia RAD HH DM h/o BRCA Recommendations po diet laxative anemia w/u Subjective Allergies: Coded Allergies: HYDROMORPHONE (Unverified Allergy, Unknown, 11/16/14) MORPHINE (Unverified Allergy, Unknown, 11/16/14) ONDANSETRON (Unverified Allergy, Unknown, 11/16/14) PHENYTOIN (Unverified Allergy, Unknown, 11/16/14) Subjective Above noted no BM x 3 days wants laxative no abd pain Objective Last 24 Hour Vital Signs Date Time Temp Pulse Resp B/P Pulse Ox O2 Delivery O2 Flow Rate FiO2 09/12/16 11:31 78 18 98 Nasal Cannula 3.0 09/12/16 11:21 80 16 95 Nasal Cannula 3.0 09/12/16 08:27 134/69 09/12/16 08:00 97.7 19 134/69 93 Nasal Cannula 3.0 09/12/16 08:00 91 09/12/16 07:28 80 18 98 Nasal Cannula 3.0 09/12/16 07:18 96 Nasal Cannula 3.0 09/12/16 07:18 Nasal Cannula 3.0 09/12/16 07:18 82 16 96 Nasal Cannula 3.0 09/12/16 04:00 4.0 09/12/16 04:00 98.1 88 18 134/63 96 Room Air 09/12/16 04:00 90 09/12/16 03:19 Nasal Cannula 3.0 09/12/16 03:19 Nasal Cannula 4.0 09/12/16 00:00 77 09/12/16 00:00 98.2 79 18 132/63 96 Room Air 09/12/16 00:00 4.0 09/11/16 23:15 Nasal Cannula 3.0 09/11/16 23:14 Nasal Cannula 4.0 09/11/16 20:00 85 09/11/16 20:00 4.0 09/11/16 20:00 98.4 84 18 112/68 96 Room Air 09/11/16 19:30 84 18 98 Nasal Cannula 3.0 09/11/16 19:28 82 18 93 Nasal Cannula 3.0 09/11/16 19:28 Nasal Cannula 3.0 09/11/16 19:28 93 Nasal Cannula 3.0 09/11/16 16:00 4.0 09/11/16 16:00 69 09/11/16 16:00 98.8 77 17 127/74 94 Room Air 09/11/16 15:18 Nasal Cannula 3.0 09/11/16 15:17 Nasal Cannula 4.0 Intake and Output 09/11/16 09/12/16 19:00 07:00 Intake Total 240 ml Output Total 475 ml 750 ml Balance -235 ml -750 ml Intake Oral 240 ml Output Urine Total 475 ml 750 ml Laboratory Tests 09/12/16 03:50: White Blood Count 9.0, Red Blood Count 3.54L, Hemoglobin 9.8L, Hematocrit 30.6L , Mean Corpuscular Volume 86, Mean Corpuscular Hemoglobin 27.7, Mean Corpuscular Hemoglobin Concent 32.0, Red Cell Distribution Width 16.4H, Platelet Count 202, Mean Platelet Volume 6.8, Neutrophils (%) (Auto) 76.9H, Lymphocytes (%) (Auto) 10.8L, Monocytes (%) (Auto) 9.3, Eosinophils (%) (Auto) 2.4, Basophils (%) (Auto) 0.6, Erythrocyte Sedimentation Rate 109H, Sodium Level 143, Potassium Level 4.3, Chloride Level 96L, Carbon Dioxide Level 38H, Anion Gap 9, Blood Urea Nitrogen 18, Creatinine 0.8, Estimat Glomerular Filtration Rate , Glucose Level 138H, Calcium Level 9.3, Phosphorus Level 3.0, Magnesium Level 2.0, Iron Level 26L, Total Iron Binding Capacity 221L, Percent Iron Saturation 12L, Unsaturated Iron Binding 195, Total Bilirubin 1.5H, Direct Bilirubin 0.3, Aspartate Amino Transf (AST/SGOT) 12, Alanine Aminotransferase ( ALT/SGPT) 11, Alkaline Phosphatase 62, C-Reactive Protein, Quantitative 15.5H, Total Protein 7.1, Albumin 3.1L, Globulin 4.0, Albumin/Globulin Ratio 0.7L, Carcinoembryonic Antigen 1.4 Height (Feet): 5 Height (Inches): 3.00 Weight (Pounds): 200 Objective WDWN NCAT supple Scattered wheeze RR Soft ND NT no edema non focal KYLEE BURROUGHS Sep 12, 2016 13:38
[2016-09-12] MEDS ORDERED: Lactulose 20gm/30ml UDC ORAL ONE (13:45)
[2016-09-12 16:00] VITALS: BP 111/56
--- NOTE | 2016-09-12 17:25 | General Progress Note ---
Assessment/Plan Status: stable Assessment/Plan 1. Acute hypoxemic respiratory failure. 2. Congestive heart failure exacerbation - workup - echocardiogram results pending. 3. Diabetes type 2, status unknown. 4. Chronic obstructive pulmonary disease. 5. Hyperlipidemia. 6. Cachexia. 7. Abdominal wall hernia-Multiple 8. Iron D. Anemia 7. Gastrointestinal and deep vein thrombosis prophylaxes. Plan: optimise medication iron deficiency supplement Subjective Constitutional: Reports: malaise Respiratory: Reports: orthopnea, shortness of breath Allergies: Coded Allergies: HYDROMORPHONE (Unverified Allergy, Unknown, 11/16/14) MORPHINE (Unverified Allergy, Unknown, 11/16/14) ONDANSETRON (Unverified Allergy, Unknown, 11/16/14) PHENYTOIN (Unverified Allergy, Unknown, 11/16/14) Objective Last 24 Hour Vital Signs Date Time Temp Pulse Resp B/P Pulse Ox O2 Delivery O2 Flow Rate FiO2 09/12/16 16:39 70 16 99 Nasal Cannula 3.0 09/12/16 16:28 75 16 97 Nasal Cannula 3.0 09/12/16 16:00 97.0 82 18 111/56 94 Nasal Cannula 2.0 09/12/16 12:00 98.1 90 20 120/73 98 Nasal Cannula 3.0 36 09/12/16 11:31 78 18 98 Nasal Cannula 3.0 09/12/16 11:21 80 16 95 Nasal Cannula 3.0 09/12/16 08:27 134/69 09/12/16 08:00 97.7 19 134/69 93 Nasal Cannula 3.0 09/12/16 08:00 91 09/12/16 07:28 80 18 98 Nasal Cannula 3.0 09/12/16 07:18 96 Nasal Cannula 3.0 09/12/16 07:18 Nasal Cannula 3.0 09/12/16 07:18 82 16 96 Nasal Cannula 3.0 09/12/16 04:00 4.0 09/12/16 04:00 98.1 88 18 134/63 96 Room Air 09/12/16 04:00 90 09/12/16 03:19 Nasal Cannula 3.0 09/12/16 03:19 Nasal Cannula 4.0 09/12/16 00:00 77 09/12/16 00:00 98.2 79 18 132/63 96 Room Air 09/12/16 00:00 4.0 09/11/16 23:15 Nasal Cannula 3.0 09/11/16 23:14 Nasal Cannula 4.0 09/11/16 20:00 85 09/11/16 20:00 4.0 09/11/16 20:00 98.4 84 18 112/68 96 Room Air 09/11/16 19:30 84 18 98 Nasal Cannula 3.0 09/11/16 19:28 82 18 93 Nasal Cannula 3.0 09/11/16 19:28 Nasal Cannula 3.0 09/11/16 19:28 93 Nasal Cannula 3.0 Intake and Output 09/11/16 09/12/16 19:00 07:00 Intake Total 240 ml Output Total 475 ml 750 ml Balance -235 ml -750 ml Intake Oral 240 ml Output Urine Total 475 ml 750 ml Laboratory Tests 09/12/16 03:50: White Blood Count 9.0, Red Blood Count 3.54L, Hemoglobin 9.8L, Hematocrit 30.6L , Mean Corpuscular Volume 86, Mean Corpuscular Hemoglobin 27.7, Mean Corpuscular Hemoglobin Concent 32.0, Red Cell Distribution Width 16.4H, Platelet Count 202, Mean Platelet Volume 6.8, Neutrophils (%) (Auto) 76.9H, Lymphocytes (%) (Auto) 10.8L, Monocytes (%) (Auto) 9.3, Eosinophils (%) (Auto) 2.4, Basophils (%) (Auto) 0.6, Erythrocyte Sedimentation Rate 109H, Sodium Level 143, Potassium Level 4.3, Chloride Level 96L, Carbon Dioxide Level 38H, Anion Gap 9, Blood Urea Nitrogen 18, Creatinine 0.8, Estimat Glomerular Filtration Rate , Glucose Level 138H, Calcium Level 9.3, Phosphorus Level 3.0, Magnesium Level 2.0, Iron Level 26L, Total Iron Binding Capacity 221L, Percent Iron Saturation 12L, Unsaturated Iron Binding 195, Total Bilirubin 1.5H, Direct Bilirubin 0.3, Aspartate Amino Transf (AST/SGOT) 12, Alanine Aminotransferase ( ALT/SGPT) 11, Alkaline Phosphatase 62, C-Reactive Protein, Quantitative 15.5H, Total Protein 7.1, Albumin 3.1L, Globulin 4.0, Albumin/Globulin Ratio 0.7L, Carcinoembryonic Antigen 1.4 Height (Feet): 5 Height (Inches): 3.00 Weight (Pounds): 200 General Appearance: WD/WN EENT: PERRL/EOMI Neck: supple Cardiovascular: normal rate Respiratory/Chest: lungs clear Abdomen: soft Extremities: non-tender Neurologic: oriented x 3 Reggie Fernandez MD Sep 12, 2016 17:25
--- NOTE | 2016-09-12 19:06 | Cardiology Report ---
APPROVED REPORT EKG Measurement Heart [id number] Normal sinus rhythm Normal ECG
[2016-09-12 20:00] VITALS: BP 106/55
[2016-09-12] MEDS ORDERED: Iron Sucrose 100 MG in NS 55 ML IVPB SCH (21:00)
[2016-09-12] MEDS ORDERED: clonazePAM 0.5mg tab ORAL PRN (21:00)
[2016-09-12] MEDS: Iron Sucrose 100 MG in NS 55 ML IVPB SCH (22:44)
[2016-09-12] MEDS: Atorvastatin 20mg tab ORAL SCH (22:45)
[2016-09-12] MEDS: Miralax 17gm pkt ORAL SCH (22:45)
[2016-09-13] VITALS: BP 136/68
[2016-09-13] MEDS: DuoNeb 0.5-3(2.5)mg/3ml neb HHN SCH ×6 (03:00→23:22)
[2016-09-13 04:00] VITALS: BP 140/98
[2016-09-13] MEDS: sitaGLIPtin 50mg tab ORAL SCH (06:26)
[2016-09-13] MEDS: NovoLOG Insulin Flexpen SUBQ SCH ×4 (06:26→21:00)
[2016-09-13 07:36] LABS: BASOPHILS % (AUTO) 0.8 % (0.0-2.0); EOSINOPHILS % (AUTO) 4.3 % (0.0-3.0); LYMPHOCYTES % (AUTO) 12.6 % (20.0-45.0); MEAN CORPUSCULAR HEMOGLOBIN 28.5 PG (27.0-31.0); MEAN CORPUSCULAR HGB CONC 33.1 G/DL (32.0-36.0); MEAN CORPUSCULAR VOLUME 86 FL (80-99); MEAN PLATELET VOLUME 6.6 FL (6.5-10.1); MONOCYTES % (AUTO) 9.6 % (1.0-10.0); NEUTROPHILS % (AUTO) 72.6 % (45.0-75.0); PLATELET COUNT 211 K/UL (150-450); RED BLOOD COUNT 3.65 M/UL (4.20-5.40); WHITE BLOOD COUNT 8.7 K/UL (4.8-10.8)
[2016-09-13 08:00] VITALS: BP 136/72
[2016-09-13 08:05] LABS: ALANINE AMINOTRANSFERASE 10 U/L (3-33); ALBUMIN/GLOBULIN RATIO 0.9 (1.0-2.7); ANION GAP 10 (5-15); ASPARTATE AMINO TRANSFERASE 10 U/L (5-40); CALCIUM 9.3 mg/dL (8.6-10.2); CARBON DIOXIDE 37 mEQ/L (20-30); CHLORIDE 96 mEQ/L (98-107); CREATININE 0.8 mg/dL (0.5-0.9); HEMOLYSIS 3; POTASSIUM 4.3 mEQ/L (3.4-4.9); SODIUM 143 mEQ/L (135-145); TOTAL PROTEIN 7.7 g/dL (6.6-8.7)
[2016-09-13 08:31] LABS: BILIRUBIN,DIRECT 0.2 mg/dL (0.1-0.3)
[2016-09-13] MEDS: Ranolazine 500mg tab ORAL SCH ×2 (08:46→21:10)
[2016-09-13] MEDS: Aspirin EC 81mg tab ORAL SCH (08:46)
[2016-09-13] MEDS: Furosemide 40mg tab ORAL SCH (08:47)
[2016-09-13] MEDS: Bystolic 2.5mg Tab ORAL SCH (08:48)
[2016-09-13] MEDS: Captopril 25mg tab ORAL SCH (09:00)
[2016-09-13] MEDS: Solifenacin 10mg tab ORAL SCH (09:00)
[2016-09-13] MEDS: Heparin 5000 units/ml inj SUBQ SCH ×2 (09:00→17:46)
--- NOTE | 2016-09-13 10:20 | Infectious Diseases Prog Note ---
Assessment/Plan Assessment/Plan ASSESSMENT: 85 y/o female with: // Acute on chronic diastolic CHF exacerbation - trop(-) x1, BNP elevated - CXR 09/10: Interstitial edema noted. The heart is enlarged - TTE 10/2014: EF 55-60%, grade I diastolic dysfunction, mild // Leukocytosis, mild - resolved, afebrile, m/l stress response - UA benign, no localizing s/sx infection // Acute respiratory failure / BiPAP 2/2 CHF, effusion // DM2 // Large ventral hernia // Morbid obesity // No ABX allergies // Full Code PLAN: - monitor pt off of ABX - monitor CBC, temperatures, gandhi-culture if acute change - monitor BMP - diuresis - BiPAP prn Subjective Allergies: Coded Allergies: HYDROMORPHONE (Unverified Allergy, Unknown, 11/16/14) MORPHINE (Unverified Allergy, Unknown, 11/16/14) ONDANSETRON (Unverified Allergy, Unknown, 11/16/14) PHENYTOIN (Unverified Allergy, Unknown, 11/16/14) Subjective remains afebrile. appears comfortable Objective Vital Signs Last 24 Hour Vital Signs Date Time Temp Pulse Resp B/P Pulse Ox O2 Delivery O2 Flow Rate FiO2 09/13/16 08:00 98.1 77 20 136/72 92 Nasal Cannula 2.0 09/13/16 07:55 Nasal Cannula 3.0 09/13/16 07:54 77 18 99 Nasal Cannula 3.0 09/13/16 07:44 72 20 93 Nasal Cannula 2.0 09/13/16 07:43 93 Nasal Cannula 3.0 09/13/16 04:00 97.7 79 18 140/98 98 Nasal Cannula 2.0 09/13/16 03:29 Nasal Cannula 09/13/16 03:29 Nasal Cannula 09/13/16 00:00 97.5 81 18 136/68 95 Nasal Cannula 2.0 09/12/16 22:47 74 16 96 Nasal Cannula 2.0 28 09/12/16 20:00 97.3 81 16 106/55 93 Nasal Cannula 2.0 09/12/16 19:00 Nasal Cannula 09/12/16 19:00 Nasal Cannula 09/12/16 16:39 70 16 99 Nasal Cannula 3.0 09/12/16 16:28 75 16 97 Nasal Cannula 3.0 09/12/16 16:00 97.0 82 18 111/56 94 Nasal Cannula 2.0 09/12/16 12:00 98.1 90 20 120/73 98 Nasal Cannula 3.0 36 09/12/16 11:31 78 18 98 Nasal Cannula 3.0 09/12/16 11:21 80 16 95 Nasal Cannula 3.0 Height (Feet): 5 Height (Inches): 3.00 Weight (Pounds): 200 General Appearance: no acute distress Respiratory/Chest: no respiratory distress Cardiovascular: normal rate, regular rhythm Abdomen: normal bowel sounds, soft, non tender, non distended Laboratory Tests Test 09/13/16 06:15 White Blood Count 8.7 K/UL (4.8-10.8) Red Blood Count 3.65 M/UL (4.20-5.40) L Hemoglobin 10.4 G/DL (12.0-16.0) L Hematocrit 31.5 % (37.0-47.0) L Mean Corpuscular Volume 86 FL (80-99) Mean Corpuscular Hemoglobin 28.5 PG (27.0-31.0) Mean Corpuscular Hemoglobin Concent 33.1 G/DL (32.0-36.0) Red Cell Distribution Width 16.0 % (11.6-14.8) H Platelet Count 211 K/UL (150-450) Mean Platelet Volume 6.6 FL (6.5-10.1) Neutrophils (%) (Auto) 72.6 % (45.0-75.0) Lymphocytes (%) (Auto) 12.6 % (20.0-45.0) L Monocytes (%) (Auto) 9.6 % (1.0-10.0) Eosinophils (%) (Auto) 4.3 % (0.0-3.0) H Basophils (%) (Auto) 0.8 % (0.0-2.0) Sodium Level 143 mEQ/L (135-145) Potassium Level 4.3 mEQ/L (3.4-4.9) Chloride Level 96 mEQ/L (98-107) L Carbon Dioxide Level 37 mEQ/L (20-30) H Anion Gap 10 (5-15) Blood Urea Nitrogen 21 mg/dL (7-23) Creatinine 0.8 mg/dL (0.5-0.9) Estimat Glomerular Filtration Rate mL/min (>60) Glucose Level 124 mg/dL (74-106) H Calcium Level 9.3 mg/dL (8.6-10.2) Total Bilirubin 1.5 mg/dL (0.0-1.2) H Direct Bilirubin 0.2 mg/dL (0.1-0.3) Aspartate Amino Transf (AST/SGOT) 10 U/L (5-40) Alanine Aminotransferase (ALT/SGPT) 10 U/L (3-33) Alkaline Phosphatase 64 U/L (35-104) Pro-B-Type Natriuretic Peptide 619 pg/mL (0-450) H Total Protein 7.7 g/dL (6.6-8.7) Albumin 3.7 g/dL (3.5-5.2) Globulin 4.0 g/dL Albumin/Globulin Ratio 0.9 (1.0-2.7) L Current Medications Medications (Trade) Dose Ordered Sig/Volodymyr Route PRN Reason Start Time Stop Time Status Last Admin Dose Admin Albuterol/ Ipratropium (DuoNeb 0.5-3(2.5)mg/3ml) 3 ml Q4HRT HHN 09/12/16 19:00 09/17/16 18:59 09/13/16 07:42 Aspirin (Ecotrin) 81 mg DAILY ORAL 09/13/16 09:00 10/13/16 08:59 09/13/16 08:46 Atorvastatin Calcium (Lipitor) 20 mg BEDTIME ORAL 09/12/16 21:00 10/12/16 20:59 09/12/16 22:45 Captopril (Capoten) 25 mg DAILY ORAL 09/13/16 09:00 10/13/16 08:59 Clonazepam (KlonoPIN) 0.5 mg BEDTIME PRN ORAL Restlessness 09/12/16 21:00 09/19/16 20:59 Dextrose (Dextrose 50%) STAT PRN IV Hypoglycemia 09/13/16 07:30 10/13/16 07:29 Furosemide (Lasix) 40 mg DAILY ORAL 09/13/16 09:00 10/13/16 08:59 09/13/16 08:47 Heparin Sodium (Porcine) (Heparin 5000 units/ml) 5,000 units BID SUBQ 09/12/16 18:00 10/12/16 17:59 09/12/16 17:36 Insulin Aspart (NovoLOG) BEFORE MEALS AND HS SUBQ 09/12/16 16:30 10/12/16 16:29 09/13/16 06:26 Iron Sucrose/ Sodium Chloride (Venofer/Sodium Chloride) 60 ml @ 240 mls/hr BEDTIME IVPB 09/12/16 21:00 09/16/16 21:01 09/12/16 22:44 Nebivolol (Bystolic) 5 mg DAILY ORAL 09/13/16 09:00 10/13/16 08:59 09/13/16 08:48 Pantoprazole (Protonix) 40 mg DAILY ORAL 09/13/16 09:00 10/13/16 08:59 09/13/16 08:46 Polyethylene Glycol (Miralax) 17 gm BEDTIME ORAL 09/12/16 21:00 10/12/16 20:59 Potassium Chloride (K-Dur) 10 meq TID ORAL 09/12/16 18:00 10/12/16 17:59 09/13/16 08:47 Ranolazine (Ranexa ER 500mg) 500 mg Q12HR ORAL 09/12/16 21:00 10/12/16 20:59 09/13/16 08:46 Sitagliptin Phosphate (Januvia) 50 mg ACBREAKFAST ORAL 09/13/16 06:30 10/13/16 06:29 09/13/16 06:26 Solifenacin (Vesicare) 5 mg DAILY ORAL 09/13/16 09:00 10/13/16 08:59 KALEIGH SAUCEDA 26, 2017 10:20
[2016-09-13] MEDS ORDERED: Tubing IV Secondary IV ONE (11:09)
[2016-09-13] MEDS ORDERED: NS 275ml ONE (11:09)
--- NOTE | 2016-09-13 11:15 | Diagnostic Imaging Report ---
Clinical history: Shortness of breath. Technique: Portable AP chest radiograph was obtained. Comparison: 09/10/16. Findings: There is no significant interval change in the interval, allowing for differences in technique and positioning. Impression: 1. Cardiomegaly with probable mild interstitial edema and trace effusions. 2. Low lung volumes with probable basilar atelectasis. 3. Atherosclerotic vascular disease.
[2016-09-13 12:00] VITALS: BP 134/88
--- NOTE | 2016-09-13 13:19 | General Progress Note ---
Assessment/Plan Status: stable Assessment/Plan 1. Acute hypoxemic respiratory failure: Resolved 2. Congestive heart failure exacerbation - workup - echocardiogram results pending. 3. Diabetes type 2, status unknown. 4. Chronic obstructive pulmonary disease. 5. Hyperlipidemia. 6. Cachexia. 7. Abdominal wall hernia-Multiple 8. Iron D. Anemia 7. Gastrointestinal and deep vein thrombosis prophylaxes. Plan: optimise medication iron deficiency supplement Likely D/c Wednesday with [facility] Subjective ROS Limited/Unobtainable: No Constitutional: Reports: malaise HEENT: Reports: no symptoms Cardiovascular: Reports: no symptoms Respiratory: Reports: no symptoms Gastrointestinal/Abdominal: Reports: no symptoms Allergies: Coded Allergies: HYDROMORPHONE (Unverified Allergy, Unknown, 11/16/14) MORPHINE (Unverified Allergy, Unknown, 11/16/14) ONDANSETRON (Unverified Allergy, Unknown, 11/16/14) PHENYTOIN (Unverified Allergy, Unknown, 11/16/14) Objective Last 24 Hour Vital Signs Date Time Temp Pulse Resp B/P Pulse Ox O2 Delivery O2 Flow Rate FiO2 09/13/16 12:00 97.7 74 20 134/88 97 Nasal Cannula 2.0 09/13/16 11:58 80 20 Nasal Cannula 3.0 09/13/16 11:50 74 20 Nasal Cannula 2.0 28 09/13/16 09:00 136/72 09/13/16 08:00 98.1 77 20 136/72 92 Nasal Cannula 2.0 09/13/16 07:55 Nasal Cannula 3.0 09/13/16 07:54 77 18 99 Nasal Cannula 3.0 09/13/16 07:44 72 20 93 Nasal Cannula 2.0 28 09/13/16 07:43 93 Nasal Cannula 3.0 09/13/16 04:00 97.7 79 18 140/98 98 Nasal Cannula 2.0 09/13/16 03:29 Nasal Cannula 09/13/16 03:29 Nasal Cannula 09/13/16 00:00 97.5 81 18 136/68 95 Nasal Cannula 2.0 09/12/16 22:47 74 16 96 Nasal Cannula 2.0 28 09/12/16 20:00 97.3 81 16 106/55 93 Nasal Cannula 2.0 09/12/16 19:00 Nasal Cannula 09/12/16 19:00 Nasal Cannula 09/12/16 16:39 70 16 99 Nasal Cannula 3.0 09/12/16 16:28 75 16 97 Nasal Cannula 3.0 09/12/16 16:00 97.0 82 18 111/56 94 Nasal Cannula 2.0 Intake and Output 09/12/16 09/13/16 19:00 07:00 Intake Total 420 ml 180 ml Output Total 900 ml 680 ml Balance -480 ml -500 ml Intake Oral 420 ml 180 ml Output Urine Total 900 ml 680 ml # Bowel Movements 1 Laboratory Tests 09/13/16 06:15: White Blood Count 8.7, Red Blood Count 3.65L, Hemoglobin 10.4L, Hematocrit 31.5L , Mean Corpuscular Volume 86, Mean Corpuscular Hemoglobin 28.5, Mean Corpuscular Hemoglobin Concent 33.1, Red Cell Distribution Width 16.0H, Platelet Count 211, Mean Platelet Volume 6.6, Neutrophils (%) (Auto) 72.6, Lymphocytes (%) (Auto) 12.6L, Monocytes (%) (Auto) 9.6, Eosinophils (%) (Auto) 4.3H, Basophils (%) (Auto) 0.8, Sodium Level 143, Potassium Level 4.3, Chloride Level 96L, Carbon Dioxide Level 37H, Anion Gap 10, Blood Urea Nitrogen 21, Creatinine 0.8, Estimat Glomerular Filtration Rate , Glucose Level 124H, Calcium Level 9.3, Total Bilirubin 1.5H, Direct Bilirubin 0.2, Aspartate Amino Transf (AST/SGOT) 10, Alanine Aminotransferase (ALT/SGPT) 10, Alkaline Phosphatase 64, Pro-B-Type Natriuretic Peptide 619H, Total Protein 7.7, Albumin 3.7, Globulin 4.0, Albumin/Globulin Ratio 0.9L Height (Feet): 5 Height (Inches): 3.00 Weight (Pounds): 200 General Appearance: WD/WN EENT: PERRL/EOMI Neck: supple Cardiovascular: normal rate Respiratory/Chest: rhonchi - bilaterally Abdomen: soft Extremities: non-tender Neurologic: oriented x 3 Reggie Fernandez MD Sep 13, 2016 13:19
[2016-09-13 16:27] VITALS: BP 110/59
--- NOTE | 2016-09-13 18:16 | General Progress Note ---
Assessment/Plan Assessment/Plan Assessment constipation Anemia RAD HH DM h/o BRCA Recommendations po diet laxative PRN anemia w/u Subjective Allergies: Coded Allergies: HYDROMORPHONE (Unverified Allergy, Unknown, 11/16/14) MORPHINE (Unverified Allergy, Unknown, 11/16/14) ONDANSETRON (Unverified Allergy, Unknown, 11/16/14) PHENYTOIN (Unverified Allergy, Unknown, 11/16/14) Subjective (+) BM feels OK d/w at bedside Objective Last 24 Hour Vital Signs Date Time Temp Pulse Resp B/P Pulse Ox O2 Delivery O2 Flow Rate FiO2 09/13/16 16:27 97.7 77 18 110/59 95 Nasal Cannula 2.0 09/13/16 15:59 77 20 Nasal Cannula 3.0 09/13/16 15:50 74 20 Nasal Cannula 2.0 28 09/13/16 12:00 97.7 74 20 134/88 97 Nasal Cannula 2.0 09/13/16 11:58 80 20 Nasal Cannula 3.0 09/13/16 11:50 74 20 Nasal Cannula 2.0 28 09/13/16 09:00 136/72 09/13/16 08:00 98.1 77 20 136/72 92 Nasal Cannula 2.0 09/13/16 07:55 Nasal Cannula 3.0 09/13/16 07:54 77 18 99 Nasal Cannula 3.0 09/13/16 07:44 72 20 93 Nasal Cannula 2.0 28 09/13/16 07:43 93 Nasal Cannula 3.0 09/13/16 04:00 97.7 79 18 140/98 98 Nasal Cannula 2.0 09/13/16 03:29 Nasal Cannula 09/13/16 03:29 Nasal Cannula 09/13/16 00:00 97.5 81 18 136/68 95 Nasal Cannula 2.0 09/12/16 22:47 74 16 96 Nasal Cannula 2.0 28 09/12/16 20:00 97.3 81 16 106/55 93 Nasal Cannula 2.0 09/12/16 19:00 Nasal Cannula 09/12/16 19:00 Nasal Cannula Intake and Output 09/12/16 09/13/16 19:00 07:00 Intake Total 420 ml 180 ml Output Total 900 ml 680 ml Balance -480 ml -500 ml Intake Oral 420 ml 180 ml Output Urine Total 900 ml 680 ml # Bowel Movements 1 Laboratory Tests 09/13/16 06:15: White Blood Count 8.7, Red Blood Count 3.65L, Hemoglobin 10.4L, Hematocrit 31.5L , Mean Corpuscular Volume 86, Mean Corpuscular Hemoglobin 28.5, Mean Corpuscular Hemoglobin Concent 33.1, Red Cell Distribution Width 16.0H, Platelet Count 211, Mean Platelet Volume 6.6, Neutrophils (%) (Auto) 72.6, Lymphocytes (%) (Auto) 12.6L, Monocytes (%) (Auto) 9.6, Eosinophils (%) (Auto) 4.3H, Basophils (%) (Auto) 0.8, Sodium Level 143, Potassium Level 4.3, Chloride Level 96L, Carbon Dioxide Level 37H, Anion Gap 10, Blood Urea Nitrogen 21, Creatinine 0.8, Estimat Glomerular Filtration Rate , Glucose Level 124H, Calcium Level 9.3, Total Bilirubin 1.5H, Direct Bilirubin 0.2, Aspartate Amino Transf (AST/SGOT) 10, Alanine Aminotransferase (ALT/SGPT) 10, Alkaline Phosphatase 64, Pro-B-Type Natriuretic Peptide 619H, Total Protein 7.7, Albumin 3.7, Globulin 4.0, Albumin/Globulin Ratio 0.9L Height (Feet): 5 Height (Inches): 3.00 Weight (Pounds): 200 Objective WDWN NCAT supple Scattered wheeze RR Soft ND NT no edema non focal KYLEE BURROUGHS Sep 13, 2016 18:16
--- NOTE | 2016-09-13 19:00 | Cardiology Progress Note ---
Assessment/Plan Assessment/Plan 1 .Acute exacerbation of COPD, there might be a component of CHF, no prior hx of CHF with normal LVEF and normal intracardiac filling pressure, will order 2D echo to assess LV systolic and diastolic function. 2. Ventral hernia 3. DM 4. Leukocytosis with left shift, ?acute bronchitis, resolved, ID is following. Subjective Subjective Transferred to med-surg. No cardiac events. Objective Last 24 Hour Vital Signs Date Time Temp Pulse Resp B/P Pulse Ox O2 Delivery O2 Flow Rate FiO2 09/13/16 16:27 97.7 77 18 110/59 95 Nasal Cannula 2.0 09/13/16 15:59 77 20 Nasal Cannula 3.0 09/13/16 15:50 74 20 Nasal Cannula 2.0 28 09/13/16 12:00 97.7 74 20 134/88 97 Nasal Cannula 2.0 09/13/16 11:58 80 20 Nasal Cannula 3.0 09/13/16 11:50 74 20 Nasal Cannula 2.0 28 09/13/16 09:00 136/72 09/13/16 08:00 98.1 77 20 136/72 92 Nasal Cannula 2.0 09/13/16 07:55 Nasal Cannula 3.0 09/13/16 07:54 77 18 99 Nasal Cannula 3.0 09/13/16 07:44 72 20 93 Nasal Cannula 2.0 28 09/13/16 07:43 93 Nasal Cannula 3.0 09/13/16 04:00 97.7 79 18 140/98 98 Nasal Cannula 2.0 09/13/16 03:29 Nasal Cannula 09/13/16 03:29 Nasal Cannula 09/13/16 00:00 97.5 81 18 136/68 95 Nasal Cannula 2.0 09/12/16 22:47 74 16 96 Nasal Cannula 2.0 28 09/12/16 20:00 97.3 81 16 106/55 93 Nasal Cannula 2.0 09/12/16 19:00 Nasal Cannula 09/12/16 19:00 Nasal Cannula Intake and Output 09/12/16 09/13/16 19:00 07:00 Intake Total 420 ml 180 ml Output Total 900 ml 680 ml Balance -480 ml -500 ml Intake Oral 420 ml 180 ml Output Urine Total 900 ml 680 ml # Bowel Movements 1 2D Echo: No report of echocardiography from [facility] Laboratory Tests Test 09/13/16 06:15 White Blood Count 8.7 K/UL (4.8-10.8) Red Blood Count 3.65 M/UL (4.20-5.40) L Hemoglobin 10.4 G/DL (12.0-16.0) L Hematocrit 31.5 % (37.0-47.0) L Mean Corpuscular Volume 86 FL (80-99) Mean Corpuscular Hemoglobin 28.5 PG (27.0-31.0) Mean Corpuscular Hemoglobin Concent 33.1 G/DL (32.0-36.0) Red Cell Distribution Width 16.0 % (11.6-14.8) H Platelet Count 211 K/UL (150-450) Mean Platelet Volume 6.6 FL (6.5-10.1) Neutrophils (%) (Auto) 72.6 % (45.0-75.0) Lymphocytes (%) (Auto) 12.6 % (20.0-45.0) L Monocytes (%) (Auto) 9.6 % (1.0-10.0) Eosinophils (%) (Auto) 4.3 % (0.0-3.0) H Basophils (%) (Auto) 0.8 % (0.0-2.0) Sodium Level 143 mEQ/L (135-145) Potassium Level 4.3 mEQ/L (3.4-4.9) Chloride Level 96 mEQ/L (98-107) L Carbon Dioxide Level 37 mEQ/L (20-30) H Anion Gap 10 (5-15) Blood Urea Nitrogen 21 mg/dL (7-23) Creatinine 0.8 mg/dL (0.5-0.9) Estimat Glomerular Filtration Rate mL/min (>60) Glucose Level 124 mg/dL (74-106) H Calcium Level 9.3 mg/dL (8.6-10.2) Total Bilirubin 1.5 mg/dL (0.0-1.2) H Direct Bilirubin 0.2 mg/dL (0.1-0.3) Aspartate Amino Transf (AST/SGOT) 10 U/L (5-40) Alanine Aminotransferase (ALT/SGPT) 10 U/L (3-33) Alkaline Phosphatase 64 U/L (35-104) Pro-B-Type Natriuretic Peptide 619 pg/mL (0-450) H Total Protein 7.7 g/dL (6.6-8.7) Albumin 3.7 g/dL (3.5-5.2) Globulin 4.0 g/dL Albumin/Globulin Ratio 0.9 (1.0-2.7) L Objective GENERAL: Atraumatic, normocephalic, PERRLA, EOMI CARDIOVASCULAR: Regular rate and rhythm. No murmurs, gallops or rubs. PULMONARY: presence of rhonchi B/L porlonged expiratory phase ABDOMEN: Bowel sounds present. Soft, nondistended, and nontender, Large ventral hernia. EXTREMITIES: Edema B/L, no clubbing or cyanosis. DEMARCUS BOYER Sep 13, 2016 19:00
[2016-09-13 20:23] VITALS: BP 91/44
[2016-09-13] MEDS: Miralax 17gm pkt ORAL SCH (21:00)
[2016-09-13] MEDS: Atorvastatin 20mg tab ORAL SCH (21:11)
[2016-09-13] MEDS: Iron Sucrose 100 MG in NS 55 ML IVPB SCH (21:11)
--- NOTE | 2016-09-13 22:58 | Pulmonology Progress Note ---
Assessment/Plan Problems: (1) CHF exacerbation (2) COPD (chronic obstructive pulmonary disease) (3) Obesity (4) Anemia (5) DM (diabetes mellitus) Assessment/Plan continue diuretics anemia w/u check cultures abx as per ID, off abx, watch wbc, and temp off antibiotics dvt prophylaxis pt/ot med/surg Subjective ROS Limited/Unobtainable: No Constitutional: Reports: anorexia, fatigue Respiratory: Reports: productive cough, shortness of breath, sputum Neurologic: Reports: confusion, weakness Allergies: Coded Allergies: HYDROMORPHONE (Unverified Allergy, Unknown, 11/16/14) MORPHINE (Unverified Allergy, Unknown, 11/16/14) ONDANSETRON (Unverified Allergy, Unknown, 11/16/14) PHENYTOIN (Unverified Allergy, Unknown, 11/16/14) Objective Last 24 Hour Vital Signs Date Time Temp Pulse Resp B/P Pulse Ox O2 Delivery O2 Flow Rate FiO2 09/13/16 20:23 96.4 62 18 91/44 94 Nasal Cannula 2.0 09/13/16 20:04 75 20 99 Nasal Cannula 3.0 32 09/13/16 19:56 75 20 97 Nasal Cannula 2.0 28 09/13/16 19:55 Nasal Cannula 3.0 32 09/13/16 19:55 97 Nasal Cannula 3.0 32 09/13/16 16:27 97.7 77 18 110/59 95 Nasal Cannula 2.0 09/13/16 15:59 77 20 Nasal Cannula 3.0 09/13/16 15:50 74 20 Nasal Cannula 2.0 28 09/13/16 12:00 97.7 74 20 134/88 97 Nasal Cannula 2.0 09/13/16 11:58 80 20 Nasal Cannula 3.0 09/13/16 11:50 74 20 Nasal Cannula 2.0 28 09/13/16 09:00 136/72 09/13/16 08:00 98.1 77 20 136/72 92 Nasal Cannula 2.0 09/13/16 07:55 Nasal Cannula 3.0 09/13/16 07:54 77 18 99 Nasal Cannula 3.0 09/13/16 07:44 72 20 93 Nasal Cannula 2.0 28 09/13/16 07:43 93 Nasal Cannula 3.0 09/13/16 04:00 97.7 79 18 140/98 98 Nasal Cannula 2.0 09/13/16 03:29 Nasal Cannula 09/13/16 03:29 Nasal Cannula 09/13/16 00:00 97.5 81 18 136/68 95 Nasal Cannula 2.0 Intake and Output 09/12/16 09/13/16 19:00 07:00 Intake Total 420 ml 180 ml Output Total 900 ml 680 ml Balance -480 ml -500 ml Intake Oral 420 ml 180 ml Output Urine Total 900 ml 680 ml # Bowel Movements 1 General Appearance: no acute distress HEENT: normocephalic, atraumatic, PERRL Respiratory/Chest: chest wall non-tender, decreased breath sounds, accessory muscle use, crackles/rales, expiratory wheezing Breasts: no masses Cardiovascular: normal peripheral pulses, normal rate, regular rhythm, no JVD Abdomen: normal bowel sounds, soft, non tender, no organomegaly Genitourinary: normal external genitalia Extremities: no cyanosis Skin: lesions Neurologic/Psychiatric: healthcare architect II-XII grossly normal, no motor/sensory deficits Laboratory Tests 09/13/16 06:15: White Blood Count 8.7, Red Blood Count 3.65L, Hemoglobin 10.4L, Hematocrit 31.5L , Mean Corpuscular Volume 86, Mean Corpuscular Hemoglobin 28.5, Mean Corpuscular Hemoglobin Concent 33.1, Red Cell Distribution Width 16.0H, Platelet Count 211, Mean Platelet Volume 6.6, Neutrophils (%) (Auto) 72.6, Lymphocytes (%) (Auto) 12.6L, Monocytes (%) (Auto) 9.6, Eosinophils (%) (Auto) 4.3H, Basophils (%) (Auto) 0.8, Sodium Level 143, Potassium Level 4.3, Chloride Level 96L, Carbon Dioxide Level 37H, Anion Gap 10, Blood Urea Nitrogen 21, Creatinine 0.8, Estimat Glomerular Filtration Rate , Glucose Level 124H, Calcium Level 9.3, Total Bilirubin 1.5H, Direct Bilirubin 0.2, Aspartate Amino Transf (AST/SGOT) 10, Alanine Aminotransferase (ALT/SGPT) 10, Alkaline Phosphatase 64, Pro-B-Type Natriuretic Peptide 619H, Total Protein 7.7, Albumin 3.7, Globulin 4.0, Albumin/Globulin Ratio 0.9L Current Medications Medications (Trade) Dose Ordered Sig/Volodymyr Route PRN Reason Start Time Stop Time Status Last Admin Dose Admin Albuterol/ Ipratropium (DuoNeb 0.5-3(2.5)mg/3ml) 3 ml Q4HRT HHN 09/12/16 19:00 09/17/16 18:59 09/13/16 19:55 Aspirin (Ecotrin) 81 mg DAILY ORAL 09/13/16 09:00 10/13/16 08:59 09/13/16 08:46 Atorvastatin Calcium (Lipitor) 20 mg BEDTIME ORAL 09/12/16 21:00 10/12/16 20:59 09/13/16 21:11 Captopril (Capoten) 25 mg DAILY ORAL 09/13/16 09:00 10/13/16 08:59 Clonazepam (KlonoPIN) 0.5 mg BEDTIME PRN ORAL Restlessness 09/12/16 21:00 09/19/16 20:59 Dextrose (Dextrose 50%) STAT PRN IV Hypoglycemia 09/13/16 07:30 10/13/16 07:29 Furosemide (Lasix) 40 mg DAILY ORAL 09/13/16 09:00 10/13/16 08:59 09/13/16 08:47 Heparin Sodium (Porcine) (Heparin 5000 units/ml) 5,000 units BID SUBQ 09/12/16 18:00 10/12/16 17:59 09/13/16 17:46 Insulin Aspart (NovoLOG) BEFORE MEALS AND HS SUBQ 09/12/16 16:30 10/12/16 16:29 09/13/16 06:26 Iron Sucrose/ Sodium Chloride (Venofer/Sodium Chloride) 60 ml @ 240 mls/hr BEDTIME IVPB 09/12/16 21:00 09/16/16 21:01 09/13/16 21:11 Nebivolol (Bystolic) 5 mg DAILY ORAL 09/13/16 09:00 10/13/16 08:59 09/13/16 08:48 Pantoprazole (Protonix) 40 mg DAILY ORAL 09/13/16 09:00 10/13/16 08:59 09/13/16 08:46 Polyethylene Glycol (Miralax) 17 gm BEDTIME ORAL 09/12/16 21:00 10/12/16 20:59 Potassium Chloride (K-Dur) 10 meq TID ORAL 09/12/16 18:00 10/12/16 17:59 09/13/16 17:45 Ranolazine (Ranexa ER 500mg) 500 mg Q12HR ORAL 09/12/16 21:00 10/12/16 20:59 09/13/16 21:10 Sitagliptin Phosphate (Januvia) 50 mg ACBREAKFAST ORAL 09/13/16 06:30 10/13/16 06:29 09/13/16 06:26 Solifenacin (Vesicare) 5 mg DAILY ORAL 09/13/16 09:00 10/13/16 08:59 LATRICE CHRISTOPHER Sep 13, 2016 22:58
[2016-09-14] MEDS: DuoNeb 0.5-3(2.5)mg/3ml neb HHN SCH ×5 (03:00→18:57)
[2016-09-14 04:00] VITALS: BP 142/70
[2016-09-14] MEDS: sitaGLIPtin 50mg tab ORAL SCH (06:08)
[2016-09-14] MEDS: NovoLOG Insulin Flexpen SUBQ SCH ×3 (06:37→16:30)
[2016-09-14 07:23] LABS: BASOPHILS % (AUTO) 0.7 % (0.0-2.0); EOSINOPHILS % (AUTO) 5.1 % (0.0-3.0); LYMPHOCYTES % (AUTO) 15.4 % (20.0-45.0); MEAN CORPUSCULAR HEMOGLOBIN 27.8 PG (27.0-31.0); MEAN CORPUSCULAR HGB CONC 32.2 G/DL (32.0-36.0); MEAN CORPUSCULAR VOLUME 86 FL (80-99); MEAN PLATELET VOLUME 7.1 FL (6.5-10.1); MONOCYTES % (AUTO) 9.8 % (1.0-10.0); PLATELET COUNT 225 K/UL (150-450); RED BLOOD COUNT 3.57 M/UL (4.20-5.40); RED CELL DISTRIBUTION WIDTH 16.3 % (11.6-14.8); WHITE BLOOD COUNT 7.1 K/UL (4.8-10.8)
[2016-09-14 08:00] VITALS: BP 129/69
[2016-09-14 08:11] LABS: ALANINE AMINOTRANSFERASE 10 U/L (3-33); ALBUMIN/GLOBULIN RATIO 0.8 (1.0-2.7); ANION GAP 8 (5-15); ASPARTATE AMINO TRANSFERASE 12 U/L (5-40); CALCIUM 9.5 mg/dL (8.6-10.2); CARBON DIOXIDE 38 mEQ/L (20-30); CHLORIDE 96 mEQ/L (98-107); CREATININE 0.9 mg/dL (0.5-0.9); HEMOLYSIS 5; POTASSIUM 4.3 mEQ/L (3.4-4.9); SODIUM 142 mEQ/L (135-145); TOTAL PROTEIN 7.6 g/dL (6.6-8.7)
[2016-09-14] MEDS: Captopril 25mg tab ORAL SCH (09:00)
[2016-09-14] MEDS: Heparin 5000 units/ml inj SUBQ SCH ×2 (09:00→18:00)
[2016-09-14] MEDS: Solifenacin 10mg tab ORAL SCH (09:00)
[2016-09-14] MEDS: Aspirin EC 81mg tab ORAL SCH (09:18)
[2016-09-14] MEDS: Furosemide 40mg tab ORAL SCH (09:18)
[2016-09-14] MEDS: Ranolazine 500mg tab ORAL SCH (09:19)
[2016-09-14] MEDS: Bystolic 2.5mg Tab ORAL SCH (09:19)
--- NOTE | 2016-09-14 09:30 | Infectious Diseases Prog Note ---
Assessment/Plan Assessment/Plan ASSESSMENT: 85 y/o female with: // Acute on chronic diastolic CHF exacerbation - trop(-) x1, BNP elevated - CXR 09/10: Interstitial edema noted. The heart is enlarged - TTE 10/2014: EF 55-60%, grade I diastolic dysfunction, mild // Leukocytosis, mild - resolved, afebrile, m/l stress response - UA benign, no localizing s/sx infection // Acute respiratory failure / BiPAP 2/2 CHF, effusion // DM2 // Large ventral hernia // Morbid obesity // No ABX allergies // Full Code PLAN: - monitor pt off of ABX - monitor CBC, temperatures, gandhi-culture if acute change - monitor BMP - diuresis - BiPAP prn Subjective Allergies: Coded Allergies: HYDROMORPHONE (Unverified Allergy, Unknown, 11/16/14) MORPHINE (Unverified Allergy, Unknown, 11/16/14) ONDANSETRON (Unverified Allergy, Unknown, 11/16/14) PHENYTOIN (Unverified Allergy, Unknown, 11/16/14) Subjective remains afebrile. appears comfortable Objective Vital Signs Last 24 Hour Vital Signs Date Time Temp Pulse Resp B/P Pulse Ox O2 Delivery O2 Flow Rate FiO2 09/14/16 04:00 97.4 79 20 142/70 92 Nasal Cannula 2.0 09/14/16 03:27 Nasal Cannula 3.0 09/14/16 03:26 Nasal Cannula 2.0 09/13/16 23:32 70 20 97 Nasal Cannula 3.0 09/13/16 23:22 70 18 98 Nasal Cannula 2.0 09/13/16 20:23 96.4 62 18 91/44 94 Nasal Cannula 2.0 09/13/16 20:04 75 20 99 Nasal Cannula 3.0 32 09/13/16 19:56 75 20 97 Nasal Cannula 2.0 28 09/13/16 19:55 Nasal Cannula 3.0 32 09/13/16 19:55 97 Nasal Cannula 3.0 32 09/13/16 16:27 97.7 77 18 110/59 95 Nasal Cannula 2.0 09/13/16 15:59 77 20 Nasal Cannula 3.0 09/13/16 15:50 74 20 Nasal Cannula 2.0 28 09/13/16 12:00 97.7 74 20 134/88 97 Nasal Cannula 2.0 09/13/16 11:58 80 20 Nasal Cannula 3.0 09/13/16 11:50 74 20 Nasal Cannula 2.0 28 Height (Feet): 5 Height (Inches): 3.00 Weight (Pounds): 200 General Appearance: no acute distress Respiratory/Chest: no respiratory distress Cardiovascular: normal rate, regular rhythm Abdomen: normal bowel sounds, soft, non tender, non distended Laboratory Tests Test 09/14/16 06:35 White Blood Count 7.1 K/UL (4.8-10.8) Red Blood Count 3.57 M/UL (4.20-5.40) L Hemoglobin 9.9 G/DL (12.0-16.0) L Hematocrit 30.8 % (37.0-47.0) L Mean Corpuscular Volume 86 FL (80-99) Mean Corpuscular Hemoglobin 27.8 PG (27.0-31.0) Mean Corpuscular Hemoglobin Concent 32.2 G/DL (32.0-36.0) Red Cell Distribution Width 16.3 % (11.6-14.8) H Platelet Count 225 K/UL (150-450) Mean Platelet Volume 7.1 FL (6.5-10.1) Neutrophils (%) (Auto) 69.0 % (45.0-75.0) Lymphocytes (%) (Auto) 15.4 % (20.0-45.0) L Monocytes (%) (Auto) 9.8 % (1.0-10.0) Eosinophils (%) (Auto) 5.1 % (0.0-3.0) H Basophils (%) (Auto) 0.7 % (0.0-2.0) Sodium Level 142 mEQ/L (135-145) Potassium Level 4.3 mEQ/L (3.4-4.9) Chloride Level 96 mEQ/L (98-107) L Carbon Dioxide Level 38 mEQ/L (20-30) H Anion Gap 8 (5-15) Blood Urea Nitrogen 23 mg/dL (7-23) Creatinine 0.9 mg/dL (0.5-0.9) Estimat Glomerular Filtration Rate mL/min (>60) Glucose Level 140 mg/dL (74-106) H Calcium Level 9.5 mg/dL (8.6-10.2) Total Bilirubin 0.8 mg/dL (0.0-1.2) Aspartate Amino Transf (AST/SGOT) 12 U/L (5-40) Alanine Aminotransferase (ALT/SGPT) 10 U/L (3-33) Alkaline Phosphatase 53 U/L (35-104) Pro-B-Type Natriuretic Peptide 325 pg/mL (0-450) Total Protein 7.6 g/dL (6.6-8.7) Albumin 3.4 g/dL (3.5-5.2) L Globulin 4.2 g/dL Albumin/Globulin Ratio 0.8 (1.0-2.7) L Current Medications Medications (Trade) Dose Ordered Sig/Volodymyr Route PRN Reason Start Time Stop Time Status Last Admin Dose Admin Albuterol/ Ipratropium (DuoNeb 0.5-3(2.5)mg/3ml) 3 ml Q4HRT HHN 09/12/16 19:00 09/17/16 18:59 09/14/16 08:05 Aspirin (Ecotrin) 81 mg DAILY ORAL 09/13/16 09:00 10/13/16 08:59 09/14/16 09:18 Atorvastatin Calcium (Lipitor) 20 mg BEDTIME ORAL 09/12/16 21:00 10/12/16 20:59 09/13/16 21:11 Captopril (Capoten) 25 mg DAILY ORAL 09/13/16 09:00 10/13/16 08:59 Clonazepam (KlonoPIN) 0.5 mg BEDTIME PRN ORAL Restlessness 09/12/16 21:00 09/19/16 20:59 Dextrose (Dextrose 50%) STAT PRN IV Hypoglycemia 09/13/16 07:30 10/13/16 07:29 Furosemide (Lasix) 40 mg DAILY ORAL 09/13/16 09:00 10/13/16 08:59 09/14/16 09:18 Heparin Sodium (Porcine) (Heparin 5000 units/ml) 5,000 units BID SUBQ 09/12/16 18:00 10/12/16 17:59 09/13/16 17:46 Insulin Aspart (NovoLOG) BEFORE MEALS AND HS SUBQ 09/12/16 16:30 10/12/16 16:29 09/14/16 06:37 Iron Sucrose/ Sodium Chloride (Venofer/Sodium Chloride) 60 ml @ 240 mls/hr BEDTIME IVPB 09/12/16 21:00 09/16/16 21:01 09/13/16 21:11 Nebivolol (Bystolic) 5 mg DAILY ORAL 09/13/16 09:00 10/13/16 08:59 09/14/16 09:19 Pantoprazole (Protonix) 40 mg DAILY ORAL 09/13/16 09:00 10/13/16 08:59 09/14/16 09:18 Polyethylene Glycol (Miralax) 17 gm BEDTIME ORAL 09/12/16 21:00 10/12/16 20:59 Potassium Chloride (K-Dur) 10 meq TID ORAL 09/12/16 18:00 10/12/16 17:59 09/13/16 17:45 Ranolazine (Ranexa ER 500mg) 500 mg Q12HR ORAL 09/12/16 21:00 10/12/16 20:59 09/14/16 09:19 Sitagliptin Phosphate (Januvia) 50 mg ACBREAKFAST ORAL 09/13/16 06:30 10/13/16 06:29 09/14/16 06:08 Solifenacin (Vesicare) 5 mg DAILY ORAL 09/13/16 09:00 10/13/16 08:59 KALEIGH SAUCEDA 27, 2017 09:30
--- NOTE | 2016-09-14 11:54 | General Progress Note ---
Assessment/Plan Status: stable Assessment/Plan 1. Acute hypoxemic respiratory failure: Resolved 2. Congestive heart failure exacerbation - workup - echocardiogram results pending. 3. Diabetes type 2, status unknown. 4. Chronic obstructive pulmonary disease. 5. Hyperlipidemia. 6. Cachexia. 7. Abdominal wall hernia-Multiple 8. Iron D. Anemia 7. Gastrointestinal and deep vein thrombosis prophylaxes. Plan: optimise medication iron deficiency supplement Likely D/c Wednesday with [facility], once clear by pulmonary Subjective ROS Limited/Unobtainable: No Constitutional: Reports: weakness HEENT: Reports: no symptoms Cardiovascular: Reports: no symptoms Respiratory: Reports: shortness of breath Gastrointestinal/Abdominal: Reports: no symptoms Neurologic/Psychiatric: Reports: no symptoms Allergies: Coded Allergies: HYDROMORPHONE (Unverified Allergy, Unknown, 11/16/14) MORPHINE (Unverified Allergy, Unknown, 11/16/14) ONDANSETRON (Unverified Allergy, Unknown, 11/16/14) PHENYTOIN (Unverified Allergy, Unknown, 11/16/14) Objective Last 24 Hour Vital Signs Date Time Temp Pulse Resp B/P Pulse Ox O2 Delivery O2 Flow Rate FiO2 09/14/16 08:00 96.4 82 18 129/69 92 Nasal Cannula 2.0 09/14/16 07:20 Nasal Cannula 3.0 32 09/14/16 07:20 86 20 99 Nasal Cannula 3.0 09/14/16 07:20 86 18 99 Nasal Cannula 2.0 09/14/16 07:20 86 Nasal Cannula 3.0 99 09/14/16 04:00 97.4 79 20 142/70 92 Nasal Cannula 2.0 09/14/16 03:27 Nasal Cannula 3.0 09/14/16 03:26 Nasal Cannula 2.0 09/13/16 23:32 70 20 97 Nasal Cannula 3.0 09/13/16 23:22 70 18 98 Nasal Cannula 2.0 09/13/16 20:23 96.4 62 18 91/44 94 Nasal Cannula 2.0 09/13/16 20:04 75 20 99 Nasal Cannula 3.0 32 09/13/16 19:56 75 20 97 Nasal Cannula 2.0 28 09/13/16 19:55 Nasal Cannula 3.0 32 09/13/16 19:55 97 Nasal Cannula 3.0 32 09/13/16 16:27 97.7 77 18 110/59 95 Nasal Cannula 2.0 09/13/16 15:59 77 20 Nasal Cannula 3.0 09/13/16 15:50 74 20 Nasal Cannula 2.0 28 09/13/16 12:00 97.7 74 20 134/88 97 Nasal Cannula 2.0 09/13/16 11:58 80 20 Nasal Cannula 3.0 Intake and Output 09/13/16 09/14/16 19:00 07:00 Intake Total 600 ml 450 ml Output Total 600 ml 850 ml Balance 0 ml -400 ml Intake Oral 600 ml 450 ml Output Urine Total 600 ml 850 ml # Bowel Movements 1 Laboratory Tests 09/14/16 06:35: White Blood Count 7.1, Red Blood Count 3.57L, Hemoglobin 9.9L, Hematocrit 30.8L , Mean Corpuscular Volume 86, Mean Corpuscular Hemoglobin 27.8, Mean Corpuscular Hemoglobin Concent 32.2, Red Cell Distribution Width 16.3H, Platelet Count 225, Mean Platelet Volume 7.1, Neutrophils (%) (Auto) 69.0, Lymphocytes (%) (Auto) 15.4L, Monocytes (%) (Auto) 9.8, Eosinophils (%) (Auto) 5.1H, Basophils (%) (Auto) 0.7, Sodium Level 142, Potassium Level 4.3, Chloride Level 96L, Carbon Dioxide Level 38H, Anion Gap 8, Blood Urea Nitrogen 23, Creatinine 0.9, Estimat Glomerular Filtration Rate , Glucose Level 140H, Calcium Level 9.5, Total Bilirubin 0.8, Aspartate Amino Transf (AST/SGOT) 12, Alanine Aminotransferase (ALT/SGPT) 10, Alkaline Phosphatase 53, Pro-B-Type Natriuretic Peptide 325, Total Protein 7.6, Albumin 3.4L, Globulin 4.2, Albumin/ Globulin Ratio 0.8L Height (Feet): 5 Height (Inches): 3.00 Weight (Pounds): 200 General Appearance: no apparent distress EENT: PERRL/EOMI Neck: supple Cardiovascular: normal rate Respiratory/Chest: rhonchi - bilaterally Abdomen: soft Extremities: non-tender Edema: 1+ Leg (L), 1+ Leg (R), 1+ Pedal (L) Neurologic: oriented x 3 Reggie Fernandez MD Sep 14, 2016 11:54
[2016-09-14 12:00] VITALS: BP 100/48
--- NOTE | 2016-09-14 12:26 | Diagnostic Imaging Report ---
Indication: DYSPNEA Technique: One view of the chest Comparison: 09/13/2016 Findings: There is some atelectasis at the right lung base. Lungs and pleural space are otherwise clear. The heart is borderline enlarged. No significant interim change Impression: Unchanged, over one day, findings as above.
--- NOTE | 2016-09-14 12:58 | General Progress Note ---
Assessment/Plan Problem List: (1) Partial small bowel obstruction ICD Codes: K56.69 - Other intestinal obstruction SNOMED: 125478409 (2) DM (diabetes mellitus) ICD Codes: E11.9 - DM (diabetes mellitus) SNOMED: 58265295 (3) Anemia ICD Codes: D64.9 - Anemia SNOMED: 598870045 (4) COPD (chronic obstructive pulmonary disease) ICD Codes: J44.9 - Chronic obstructive pulmonary disease, unspecified SNOMED: 53625168 (5) CHF exacerbation ICD Codes: I50.9 - Heart failure, unspecified SNOMED: 40173052 Assessment/Plan laxatives iron supplements out patient fu Subjective ROS Limited/Unobtainable: Yes Allergies: Coded Allergies: HYDROMORPHONE (Unverified Allergy, Unknown, 11/16/14) MORPHINE (Unverified Allergy, Unknown, 11/16/14) ONDANSETRON (Unverified Allergy, Unknown, 11/16/14) PHENYTOIN (Unverified Allergy, Unknown, 11/16/14) Subjective no event Objective Last 24 Hour Vital Signs Date Time Temp Pulse Resp B/P Pulse Ox O2 Delivery O2 Flow Rate FiO2 09/14/16 11:20 78 18 96 Nasal Cannula 2.0 09/14/16 11:20 80 20 99 Nasal Cannula 3.0 09/14/16 08:00 96.4 82 18 129/69 92 Nasal Cannula 2.0 09/14/16 07:20 Nasal Cannula 3.0 32 09/14/16 07:20 86 20 99 Nasal Cannula 3.0 09/14/16 07:20 86 18 99 Nasal Cannula 2.0 09/14/16 07:20 86 Nasal Cannula 3.0 99 09/14/16 04:00 97.4 79 20 142/70 92 Nasal Cannula 2.0 09/14/16 03:27 Nasal Cannula 3.0 09/14/16 03:26 Nasal Cannula 2.0 09/13/16 23:32 70 20 97 Nasal Cannula 3.0 09/13/16 23:22 70 18 98 Nasal Cannula 2.0 09/13/16 20:23 96.4 62 18 91/44 94 Nasal Cannula 2.0 09/13/16 20:04 75 20 99 Nasal Cannula 3.0 32 09/13/16 19:56 75 20 97 Nasal Cannula 2.0 28 09/13/16 19:55 Nasal Cannula 3.0 32 09/13/16 19:55 97 Nasal Cannula 3.0 32 09/13/16 16:27 97.7 77 18 110/59 95 Nasal Cannula 2.0 09/13/16 15:59 77 20 Nasal Cannula 3.0 09/13/16 15:50 74 20 Nasal Cannula 2.0 28 Intake and Output 09/13/16 09/14/16 19:00 07:00 Intake Total 600 ml 450 ml Output Total 600 ml 850 ml Balance 0 ml -400 ml Intake Oral 600 ml 450 ml Output Urine Total 600 ml 850 ml # Bowel Movements 1 Laboratory Tests 09/14/16 06:35: White Blood Count 7.1, Red Blood Count 3.57L, Hemoglobin 9.9L, Hematocrit 30.8L , Mean Corpuscular Volume 86, Mean Corpuscular Hemoglobin 27.8, Mean Corpuscular Hemoglobin Concent 32.2, Red Cell Distribution Width 16.3H, Platelet Count 225, Mean Platelet Volume 7.1, Neutrophils (%) (Auto) 69.0, Lymphocytes (%) (Auto) 15.4L, Monocytes (%) (Auto) 9.8, Eosinophils (%) (Auto) 5.1H, Basophils (%) (Auto) 0.7, Sodium Level 142, Potassium Level 4.3, Chloride Level 96L, Carbon Dioxide Level 38H, Anion Gap 8, Blood Urea Nitrogen 23, Creatinine 0.9, Estimat Glomerular Filtration Rate , Glucose Level 140H, Calcium Level 9.5, Total Bilirubin 0.8, Aspartate Amino Transf (AST/SGOT) 12, Alanine Aminotransferase (ALT/SGPT) 10, Alkaline Phosphatase 53, Pro-B-Type Natriuretic Peptide 325, Total Protein 7.6, Albumin 3.4L, Globulin 4.2, Albumin/ Globulin Ratio 0.8L Height (Feet): 5 Height (Inches): 3.00 Weight (Pounds): 200 General Appearance: alert EENT: normal ENT inspection Neck: supple Cardiovascular: normal rate Respiratory/Chest: lungs clear Abdomen: normal bowel sounds, non tender, soft Extremities: non-tender WILBERTO GILMAN Sep 14, 2016 12:58
[2016-09-14] MEDS ORDERED: Docusate 250mg cap ORAL SCH (14:00)
[2016-09-14 16:00] VITALS: BP 104/54
--- NOTE | 2016-09-14 19:17 | Cardiology Progress Note ---
Assessment/Plan Assessment/Plan 1 .Acute exacerbation of COPD, normal LVEF, normal BNP, continue nebulizer, inhalers and pulmonary toilet. 2. Ventral hernia 3. DM 4. Leukocytosis with left shift, ?acute bronchitis. Subjective Subjective Receiving breathing treatment No chest pain Objective Last 24 Hour Vital Signs Date Time Temp Pulse Resp B/P Pulse Ox O2 Delivery O2 Flow Rate FiO2 09/14/16 18:59 28 09/14/16 18:57 78 16 96 Nasal Cannula 2.0 28 09/14/16 16:00 97.7 69 20 104/54 98 Nasal Cannula 2.0 09/14/16 14:50 73 18 99 Nasal Cannula 2.0 09/14/16 14:50 80 20 99 Nasal Cannula 3.0 09/14/16 12:00 97.3 74 18 100/48 98 Nasal Cannula 2.0 09/14/16 11:20 78 18 96 Nasal Cannula 2.0 09/14/16 11:20 80 20 99 Nasal Cannula 3.0 09/14/16 08:00 96.4 82 18 129/69 92 Nasal Cannula 2.0 09/14/16 07:20 Nasal Cannula 3.0 32 09/14/16 07:20 86 20 99 Nasal Cannula 3.0 09/14/16 07:20 86 18 99 Nasal Cannula 2.0 09/14/16 07:20 86 Nasal Cannula 3.0 99 09/14/16 04:00 97.4 79 20 142/70 92 Nasal Cannula 2.0 09/14/16 03:27 Nasal Cannula 3.0 09/14/16 03:26 Nasal Cannula 2.0 09/13/16 23:32 70 20 97 Nasal Cannula 3.0 09/13/16 23:22 70 18 98 Nasal Cannula 2.0 09/13/16 20:23 96.4 62 18 91/44 94 Nasal Cannula 2.0 09/13/16 20:04 75 20 99 Nasal Cannula 3.0 32 09/13/16 19:56 75 20 97 Nasal Cannula 2.0 28 09/13/16 19:55 Nasal Cannula 3.0 32 09/13/16 19:55 97 Nasal Cannula 3.0 32 Intake and Output 09/13/16 09/14/16 19:00 07:00 Intake Total 600 ml 450 ml Output Total 600 ml 850 ml Balance 0 ml -400 ml Intake Oral 600 ml 450 ml Output Urine Total 600 ml 850 ml # Bowel Movements 1 2D Echo: EF 55%, Mild LVH, Mild , RVSP 35-40 mmHg c/w mild Pul. HTN Laboratory Tests Test 09/14/16 06:35 White Blood Count 7.1 K/UL (4.8-10.8) Red Blood Count 3.57 M/UL (4.20-5.40) L Hemoglobin 9.9 G/DL (12.0-16.0) L Hematocrit 30.8 % (37.0-47.0) L Mean Corpuscular Volume 86 FL (80-99) Mean Corpuscular Hemoglobin 27.8 PG (27.0-31.0) Mean Corpuscular Hemoglobin Concent 32.2 G/DL (32.0-36.0) Red Cell Distribution Width 16.3 % (11.6-14.8) H Platelet Count 225 K/UL (150-450) Mean Platelet Volume 7.1 FL (6.5-10.1) Neutrophils (%) (Auto) 69.0 % (45.0-75.0) Lymphocytes (%) (Auto) 15.4 % (20.0-45.0) L Monocytes (%) (Auto) 9.8 % (1.0-10.0) Eosinophils (%) (Auto) 5.1 % (0.0-3.0) H Basophils (%) (Auto) 0.7 % (0.0-2.0) Sodium Level 142 mEQ/L (135-145) Potassium Level 4.3 mEQ/L (3.4-4.9) Chloride Level 96 mEQ/L (98-107) L Carbon Dioxide Level 38 mEQ/L (20-30) H Anion Gap 8 (5-15) Blood Urea Nitrogen 23 mg/dL (7-23) Creatinine 0.9 mg/dL (0.5-0.9) Estimat Glomerular Filtration Rate mL/min (>60) Glucose Level 140 mg/dL (74-106) H Calcium Level 9.5 mg/dL (8.6-10.2) Total Bilirubin 0.8 mg/dL (0.0-1.2) Aspartate Amino Transf (AST/SGOT) 12 U/L (5-40) Alanine Aminotransferase (ALT/SGPT) 10 U/L (3-33) Alkaline Phosphatase 53 U/L (35-104) Pro-B-Type Natriuretic Peptide 325 pg/mL (0-450) Total Protein 7.6 g/dL (6.6-8.7) Albumin 3.4 g/dL (3.5-5.2) L Globulin 4.2 g/dL Albumin/Globulin Ratio 0.8 (1.0-2.7) L Objective GENERAL: No respiratory distress HEENT: Atraumatic, normocephalic, PERRLA, EOMI CARDIOVASCULAR: Regular rate and rhythm. 2/6 ESM at LSB, no gallops or rubs. PULMONARY: decrease BS b/l ABDOMEN: Bowel sounds present. Soft, nondistended, and nontender, Large ventral hernia. EXTREMITIES: No edema, clubbing or cyanosis. DEMARCUS BOYER Sep 14, 2016 19:17
--- NOTE | 2016-09-14 19:41 | Cardiology Report ---
APPROVED REPORT EXAM: Two-dimensional and M-mode echocardiogram with Doppler and color Doppler. INDICATION Congestive Heart Failure M-Mode DIMENSIONS IVSd1.9 (0.7-1.1cm)Left Atrium (MM)3.6 (1.6-4.0cm) LVDd3.5 (3.5-5.6cm)Aortic Root3.2 (2.0-3.7cm) PWd1.0 (0.7-1.1cm)Aortic Cusp Exc.1.4 (1.5-2.0cm) LVDs2.0 (2.5-4.0cm) PWs2.1 cm Technically difficult study due to poor acoustic windows. Study quality precludes accurate assessment of regional wall motion. Normal left ventricular chamber size, systolic function and wall motion. Left ventricular ejection fraction estimated to be 55-60 %. Mild left ventricular hypertrophy. Anterior Echo-free space, may be due to pericardial fat or effusion. Mild bi-atrial enlargement. Right ventricular chamber size is within normal limits. Aortic valve calcification with decreased cusp excursion c/w aortic stenosis. Mildly thickened mitral valve leaflets with normal excursion. Mild mitral annulus and aortic root calcification. Normal pulmonic valve structure. Normal tricuspid valve structure. IVC at normal size with physiologic collapse. A color flow and spectral Doppler study was performed and revealed: No aortic regurgitation. Peak aortic valve gradient of 36 mmHg and a mean of 19 mmHg. Aortic valve area 1.3 cm2 calculated by continuity equation. Mild to moderate mitral regurgitation. Mitral diastolic velocities shows E/A near equalization suggesting beginning of reduced left ventricular relaxation c/w diastolic dysfunction. Trace tricuspid regurgitation. Tricuspid systolic velocities suggests peak right ventricular systolic pressure of 17 mmHg Trace pulmonic regurgitation present.
[2016-09-14] MEDS ORDERED: Tubing IV Secondary IV ONE (19:44)
[2016-09-14] MEDS ORDERED: Iron Sucrose 100 MG in NS 55 ML IVPB SCH (21:00)
--- NOTE | 2016-09-14 23:44 | Pulmonology Progress Note ---
Assessment/Plan Problems: (1) CHF exacerbation (2) COPD (chronic obstructive pulmonary disease) (3) Obesity (4) Anemia (5) DM (diabetes mellitus) Assessment/Plan continue diuretics anemia w/u check cultures abx as per ID, off abx, watch wbc, and temp off antibiotics dvt prophylaxis pt/ot med/surg Subjective ROS Limited/Unobtainable: No Respiratory: Reports: dyspnea at rest, productive cough, shortness of breath, sputum, wheezing Allergies: Coded Allergies: HYDROMORPHONE (Unverified Allergy, Unknown, 11/16/14) MORPHINE (Unverified Allergy, Unknown, 11/16/14) ONDANSETRON (Unverified Allergy, Unknown, 11/16/14) PHENYTOIN (Unverified Allergy, Unknown, 11/16/14) Objective Last 24 Hour Vital Signs Date Time Temp Pulse Resp B/P Pulse Ox O2 Delivery O2 Flow Rate FiO2 09/14/16 19:12 76 16 99 Nasal Cannula 2.0 28 09/14/16 19:01 Nasal Cannula 2.0 28 09/14/16 19:00 96 Nasal Cannula 2.0 28 09/14/16 18:59 28 09/14/16 18:57 78 16 96 Nasal Cannula 2.0 28 09/14/16 16:00 97.7 69 20 104/54 98 Nasal Cannula 2.0 09/14/16 14:50 73 18 99 Nasal Cannula 2.0 09/14/16 14:50 80 20 99 Nasal Cannula 3.0 09/14/16 12:00 97.3 74 18 100/48 98 Nasal Cannula 2.0 09/14/16 11:20 78 18 96 Nasal Cannula 2.0 09/14/16 11:20 80 20 99 Nasal Cannula 3.0 09/14/16 08:00 96.4 82 18 129/69 92 Nasal Cannula 2.0 09/14/16 07:20 Nasal Cannula 3.0 32 09/14/16 07:20 86 20 99 Nasal Cannula 3.0 09/14/16 07:20 86 18 99 Nasal Cannula 2.0 09/14/16 07:20 86 Nasal Cannula 3.0 99 09/14/16 04:00 97.4 79 20 142/70 92 Nasal Cannula 2.0 09/14/16 03:27 Nasal Cannula 3.0 09/14/16 03:26 Nasal Cannula 2.0 Intake and Output 09/13/16 09/14/16 19:00 07:00 Intake Total 600 ml 450 ml Output Total 600 ml 850 ml Balance 0 ml -400 ml Intake Oral 600 ml 450 ml Output Urine Total 600 ml 850 ml # Bowel Movements 1 General Appearance: no acute distress HEENT: normocephalic, atraumatic, PERRL Respiratory/Chest: chest wall non-tender, decreased breath sounds, accessory muscle use, rhonchi, expiratory wheezing Breasts: no masses Cardiovascular: normal peripheral pulses, normal rate, regular rhythm, no JVD Abdomen: normal bowel sounds, soft, non tender, no organomegaly Genitourinary: normal external genitalia Extremities: no cyanosis 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, no motor/sensory deficits Laboratory Tests 09/14/16 06:35: White Blood Count 7.1, Red Blood Count 3.57L, Hemoglobin 9.9L, Hematocrit 30.8L , Mean Corpuscular Volume 86, Mean Corpuscular Hemoglobin 27.8, Mean Corpuscular Hemoglobin Concent 32.2, Red Cell Distribution Width 16.3H, Platelet Count 225, Mean Platelet Volume 7.1, Neutrophils (%) (Auto) 69.0, Lymphocytes (%) (Auto) 15.4L, Monocytes (%) (Auto) 9.8, Eosinophils (%) (Auto) 5.1H, Basophils (%) (Auto) 0.7, Sodium Level 142, Potassium Level 4.3, Chloride Level 96L, Carbon Dioxide Level 38H, Anion Gap 8, Blood Urea Nitrogen 23, Creatinine 0.9, Estimat Glomerular Filtration Rate , Glucose Level 140H, Calcium Level 9.5, Total Bilirubin 0.8, Aspartate Amino Transf (AST/SGOT) 12, Alanine Aminotransferase (ALT/SGPT) 10, Alkaline Phosphatase 53, Pro-B-Type Natriuretic Peptide 325, Total Protein 7.6, Albumin 3.4L, Globulin 4.2, Albumin/ Globulin Ratio 0.8L LATRICE CHRISTOPHER Sep 14, 2016 23:44
--- NOTE | 2016-09-15 15:11 | Discharge Summary ---
Discharge Summary Hospital Course Date of Admission Sep 10, 2016 at 05:47 Date of Discharge Sep 14, 2016 at 19:45 Admitting Diagnosis respiratory failure HPI Elvia Rogers is a 85 year old female who was admitted on Sep 10, 2016 at 05: 47 for Respiratory Failure Hospital Course dc summary #[id number] Discharge Medications Continued Medications: Aspirin* (Aspir 81*) 81 Mg Tablet.dr 81 MG ORAL DAILY, TAB Atorvastatin Calcium* (Atorvastatin Calcium*) 20 Mg Tablet 20 MG ORAL BEDTIME, TAB Captopril (Captopril) 25 Mg Tablet 25 MG PO DAILY, TAB Furosemide (Furosemide) 40 Mg/5 Ml Solution 40 MG ORAL DAILY, ML Nebivolol Hcl* (Bystolic*) 2.5 Mg Tablet 5 MG ORAL DAILY, TAB Potassium Chloride (Potassium Chloride) 8 Meq Tablet.er 8 MEQ PO THREE TIMES A DAY, TAB Ranolazine* (Ranexa*) 500 Mg Tab.er.12h 500 MG ORAL EVERY 12 HOURS, TAB 0 Refills Sitagliptin (Januvia) 50 Mg Tab 50 MG ORAL DAILY, TAB Discharge Condition Upon Discharge: stable Discharge Disposition Patient was discharged to Home with Home Health(06) Discharge Diagnoses: Discharge Instructions Discharge Instructions Special Instructions I have been assigned to complete a D/C Summary on this account. I was not involved in the patient management Renetta Solis NP (Vanchtein) Sep 15, 2016 15:11
--- NOTE | 2016-09-16 03:48 | Discharge Summary 2 SIG ---
DATE OF ADMISSION: 09/10/2016 DATE OF DISCHARGE: 09/14/2016 REASON FOR ADMISSION: 85-year-old female was brought to the emergency room with increased shortness of breath with gradual onset of symptoms as well as orthopnea. The patient denied chest pain. The patient denied any vomiting, nausea, diarrhea, or abdominal pain. No fever. No chills. The patient was taking diuretic. The patient with prior history of COPD. The patient recently was discharged from [facility]. Workup in the emergency room revealed mild leukocytosis at 11.8. Mild anemia. Stable electrolytes. Elevated total bilirubin. ProBNP 1247. Urinalysis was negative. EKG showed normal sinus rhythm. No acute changes. Initial chest x-ray shows congestive heart failure. Patient was hypoxic. The patient was placed on supplemental oxygen and admitted to the hospital for further management. ADMITTING DIAGNOSES: 1. Acute hypoxemic respiratory failure, requiring BiPAP. 2. Congestive heart failure exacerbation. 3. Chronic obstructive pulmonary disease , possibly exacerbation. 4. Abdominal wall hernia. 5. Diabetes mellitus. HOSPITAL STAY: The patient admitted to telemetry floor. Cardiology, General Surgery, ID, and Pulmonology were all consulted. In regards to respiratory status, pulmonary toilet was provided as needed. The patient was started on the diuretics. The patient was gradually able to be weaned from BiPAP to supplemental oxygen via nasal cannula . Respiratory status improved after diuretic. Antitussive provided as needed. ProBNP was down to 325 on the day of discharge from initial of 1247. Chest x-ray prior to discharge revealed atelectasis at the right lung base, otherwise lungs and pleural spaces were clear. Heart was borderline and enlarged. Cardiology seen the patient Echocardiogram revealed normal ejection fraction of 55% to 60% and right ventricular systolic pressure of 19. Evidence of mild left ventricular hypertrophy. Evidence of mild aortic stenosis and grade 1 diastolic dysfunction. The patient was treated for CHF exacerbation with significant clinical improvement after diuretics. The patient was discharged on diuretics and potassium supplement as well as iron supplement. The patient with history of hypertension. Blood pressure was managed with multiple regimen of antihypertensive medications, Statin and aspirin were continued along with Renvela. DVT prophylaxis was provided. Patient initially started on diuretic. Renal parameters and electrolytes as well as intake and output were closely monitored. Nephrotoxic were avoided. Electrolyte were replaced as needed. Blood sugar was managed with sliding scale insulin, but at home, the patient to continue Januvia. Hemoglobin A1c - 5.9, at goal.. General Surgery consult was requested for ventral hernia. Per Surgery, the patient needs ventral herniorrhaphy. Per surgeon, only after the patient will be stable and Cardiology will clear the patient for surgery, he will be glad to perform this surgery. The patient was advised upon discharge to follow up with general surgeon as an outpatient. GI followed the patient for anemia. Anemia workup revealed low iron. The patient started on iron supplement. Discharged on oral supplement. Stool OB was not collected. The CEA was within normal limits. ID followed the patient. Chest x-ray showed interstitial edema as mentioned above. Urinalysis was benign. Mild leukocytosis resolved likely with stress response. ID kept the patient off antibiotics since he had a low suspicion for infectious process. GI seen the patient as mention. Bowel regimen was instituted. DVT prophylaxis was provided. The patient was stable for discharge home with home health. DISCHARGE DIAGNOSES: 1. Acute hypoxemic respiratory failure, requiring BiPAP, resolved. 2. acute on chronic congestive heart failure 3. Chronic obstructive pulmonary disease. 4. Large partially reducible ventral hernia. 5. Diabetes mellitus. 6. Hypertension. 7. Iron deficiency anemia. 8. Morbid obesity. DISCHARGE MEDICATIONS: See medication reconciliation list. DISCHARGE INSTRUCTIONS: The patient was discharged home with home health. Follow up with the primary medical doctor. Reggie Fernandez M.D. I have been assigned to dictate discharge summary on this account and I was not involved in the patient's management. Renetta Solis (Vanchtein) NPratima MURILLO: SCARLET JOB#: [id number] CC: [id number]
--- NOTE | 2016-09-16 16:19 | Consultation ---
DATE OF CONSULTATION: REFERRING PHYSICIAN: Reggie Fernandez M.D. REASON FOR CONSULTATION: Management of shortness of breath. HISTORY OF PRESENT ILLNESS: The patient is a very unfortunate 85-year-old female, who was just discharged from [facility] after evaluation for ventral hernia. The patient presents to [facility] with complaints of shortness of breath, which was gradual in onset. She also had increased orthopnea. The patient's daughter states that the patient had received a large amount of IV fluid for the treatment of hernia at [facility]. CARDIAC MEDICAL HISTORY: Significant for chronic obstructive pulmonary disease. A 2D echocardiography done in 2014 had shown normal LV systolic function with LVEF of approximately 50%, presence of a grade 1 LV diastolic dysfunction consistent with apparent LV relaxation and normal intracardiac filling pressures. PAST MEDICAL HISTORY: Significant for COPD, diabetes mellitus, possible small bowel obstruction, anemia, and congestive heart failure. ALLERGIES: To Dilaudid, morphine, Zofran, and phenytoin. HOME MEDICATIONS: Include aspirin 81 mg p.o. daily, atorvastatin 12 mg p.o. nightly, captopril 25 mg p.o. daily, Klonopin 0.5 mg p.o. daily, Benadryl 25 mg p.o. daily, Nexium 20 mg p.o. twice daily, furosemide 40 mg p.o. daily, Bystolic 2.5 mg p.o. daily, potassium chloride 8 mEq p.o. three times daily, Ranexa 500 mg q.12 h., Januvia 50 mg p.o. daily, and VESIcare 5 mg daily. Also, valsartan and hydrochlorothiazide 160/12.5 mg one tablet p.o. daily. REVIEW OF SYSTEMS: HEENT: Denies any headache, diplopia, or blurred vision. Constitutional: Appears to be very agitated and restless in bed. Denies any chills, but had some low-grade fever. Cardiovascular: Denies any chest pain at this time. She has got shortness of breath with less than ordinary activities and some swelling of the legs. No syncope. Pulmonary: Complains of cough and shortness of breath, but no hemoptysis. Gastrointestinal: Complains of abdominal pain. She has got a ventral hernia. Genitourinary: Denies any hematuria, dysuria, or incontinence. Neurology: Denies any motor dysfunction, sensory deficit, or altered speech. PHYSICAL EXAMINATION: VITAL SIGNS: Blood pressure 167/88, heart rate of 91, respirations 42, temperature 97.5 degrees Fahrenheit, and O2 saturation 96%. She was placed on BiPAP. GENERAL: The patient is a very pleasant 85-year-old female, who appears to be in mild respiratory distress and somewhat agitated. HEENT: Atraumatic and normocephalic. Anicteric. Pupils are equal, round, and reactive to light and accommodation. Extraocular muscles intact. NECK: JVP is less than 5 cm. No carotid bruit. Carotid upstroke is 2+ bilaterally. CARDIOVASCULAR: Normal S1 and S2. Regular rate and rhythm. No murmurs, gallops, or rubs. PMI is at fourth intercostal space in the midclavicular line. LUNGS: Prolonged expiratory phase, presence of rhonchi bilaterally. ABDOMEN: Distended due to obesity. No hepatosplenomegaly. Positive bowel sounds. EXTREMITIES: There is 1+ bilateral lower extremity edema, but no clubbing or cyanosis. LABORATORY FINDINGS: WBC was 11.8, hemoglobin of 12.1, hematocrit of 38.1, and platelet counts 220,000 with 82.7% lymphocytes. Chem-20, sodium was 139, potassium was 4.4, chloride was 92, bicarbonate was 35, BUN of 13, creatinine 0.7, glucose 169, and calcium was 10.3. Total bilirubin was 1.7. Troponin I was less than 0.3. ProBNP was 1247. IMAGING: Chest x-ray showed interstitial edema, cardiomegaly, and osteopenic bones. A 12-lead electrocardiogram for that shows sinus rhythm at rate of normal 90 with normal TN interval, normal QT interval, and no acute ischemic changes. ASSESSMENT AND PLAN: The patient is a very unfortunate 85-year-old female, who was recently discharged from [facility], presents with shortness of breath to this facility: 1. Dyspnea. A physical examination is mostly compatible with acute exacerbation of chronic obstructive pulmonary disease, probably there might be some component in view of heart failure. B-type natriuretic peptide is elevated. The patient used to be on Lasix 40 mg daily, however, that regimen was discontinued at [facility]. 2. We will also obtain a 2D echocardiography for assessment of left ventricular systolic and diastolic function. 3. Further therapeutic decision will be based on the results of 2D echocardiography. In the meantime, the patient will be continued on inhaler, pulmonary toilet, intravenous antibiotic therapy, and diuretic treatment. 4. History of diabetes mellitus. 5. History of partial small bowel obstruction. 6. History of anemia. I would like to thank Dr. Fernandez for allowing me to participate in the care of this patient. Elroy Taylor M.D. DR: TODD JOB#: [id number] CC:
== END 2016-09-14 19:45 | disposition home health service (06) | DRG 291 ==
LOC: EDBD 04:01 → EMR 04:14 → 2W 05:47 → EDBEDREQ 09:23 → 4W 09-12 15:10
PROC: 5A09357 Assistance with Respiratory Ventilation, Less than 24 Consecutive Hours, Continuous Positive Airway Pressure (ICD-10-PCS; principal; 2016-09-10)
DX: I50.33 Acute on chronic diastolic (congestive) heart failure (principal); J96.00 Acute respiratory failure, unspecified whether with hypoxia or hypercapnia; R64 Cachexia; J96.01 Acute respiratory failure with hypoxia; E66.01 Morbid (severe) obesity due to excess calories; E11.9 Type 2 diabetes mellitus without complications; D50.9 Iron deficiency anemia, unspecified; K43.9 Ventral hernia without obstruction or gangrene; Z88.6 Allergy status to analgesic agent; Z88.8 Allergy status to other drugs, medicaments and biological substances; J44.9 Chronic obstructive pulmonary disease, unspecified; E78.5 Hyperlipidemia, unspecified; I35.0 Nonrheumatic aortic (valve) stenosis
CPT/HCPCS: 36415; 71010; 80053; 81003; 82248; 82378; 82550; 82553; 82962; 83036; 83540; 83550; 83735; 83880; 84100; 84443; 84484; 85025; 85651; 86140; 87081; 93005; 93306; 94640; 94660; 94664; 94760; J1815; J7620